=== PATIENT | male | born 1950 | race Caucasian/White ===

== ENCOUNTER → 2018-01-30 19:07 | Outpatient (CLI) | payer MEDICARE, OTHER, SELFPAY ==
[2018-01-30 19:41] LABS: Basophils % 0.4 % (0.1-2.0); Eosinophils # 0.1 K/mm3 (0.0-0.4); Eosinophils % 1.7 % (0.1-12.0); Hematocrit 46.5 % (42.0-52.0); Hemoglobin 14.8 g/dL (14.1-18.0); Lymphocytes % 26.4 % (10-50); Mean Corpuscular HGB Conc 31.9 g/dL (31.8-35.4); Mean Corpuscular Hemoglobin 28.4 pg (27.0-31.2); Mean Corpuscular Volume 89.2 fl (80-94); Mean Platelet Volume 7.4 fl (7.4-10.4); Monocytes # 0.4 K/mm3 (0.1-1.0); Monocytes % 5.9 % (1.7-9.3); Neutrophils # 4.8 K/mm3 (1.8-7.8); Neutrophils % 65.5 % (37.0-80.0); Platelet Count 252 K/mm3 (142-424); Red Blood Count 5.21 M/mm3 (4.60-6.20); Red Cell Distribution Width 14.3 % (11.5-17.5); White Blood Count 7.4 K/mm3 (4.8-10.8)
[2018-01-30 21:36] LABS: Alanine Aminotransferase 20 U/L (12-78); Albumin Level 3.6 gm/dL (3.4-5.0); Alkaline Phosphatase 65 U/L (46-116); Anion Gap 15.2 mEq/L (5-15); Aspartate Amino Transferase 18 U/L (15-37); Bilirubin,Total 0.6 mg/dL (0.2-1.0); Blood Urea Nitrogen 25 mg/dL (7-18); Calcium 8.7 mg/dL (8.5-10.1); Carbon Dioxide 27 mmol/L (21.0-32.0); Chloride 103 mmol/L (98-107); Chol/HDL Ratio 2.3 (1-3.5); Cholesterol 99 mg/dL (140-200); Creatinine,Serum 1.45 mg/dL (0.70-1.30); Estimated Glomerular Filt Rate 48 ml/min (>60); GFR (African American) 59 ML/MIN (>60); Globulin 3.6 gm/dl (1.3-3.2); HDL Cholesterol 44 mg/dL (27-67); LDL Cholesterol 1 mg/dL (0-130); Potassium 5.2 mmoL/L (3.5-5.1); Sodium 140 mmol/L (136-145); T4 (Thyroxine) 8.6 ug/dl (4.7-13.3); Thyroid Stimulating Hormone 1.13 uIU/ml (0.358-3.740); Total Protein,Serum 7.2 gm/dL (6.4-8.2); Triglycerides 270 mg/dL (30-200); VLDL Cholesterol 54 mg/dL (0-40)
[2018-01-30 21:44] LABS: Glucose 89 mg/dL (74-106)
[2018-02-01 11:09] LABS: PSA, Free 0.87 ng/mL; Prostate Specific Ag 2.4 ng/mL (0.0-4.0)
== END ==
PROVIDERS: Visit Provider Emergency Medicine
DX: E03.9 Hypothyroidism, unspecified (principal); I10 Essential (primary) hypertension
CPT/HCPCS: 80053; 80061; 84153; 84154; 84436; 84443; 85025

== ENCOUNTER → 2018-02-09 17:32 | Outpatient (CLI) | payer MEDICARE, OTHER, SELFPAY ==
[2018-02-09 19:00] LABS: Anion Gap 13.7 mEq/L (5-15); Blood Urea Nitrogen 17 mg/dL (7-18); Calcium 9.1 mg/dL (8.5-10.1); Carbon Dioxide 28 mmol/L (21.0-32.0); Chloride 104 mmol/L (98-107); Estimated Glomerular Filt Rate 55 ml/min (>60); GFR (African American) 66 ML/MIN (>60); Glucose 103 mg/dL (74-106); Potassium 4.7 mmoL/L (3.5-5.1); Sodium 141 mmol/L (136-145)
== END ==
PROVIDERS: Visit Provider Physician Assistant
DX: E87.5 Hyperkalemia (principal)
CPT/HCPCS: 80048

== ENCOUNTER 2020-12-26 23:42 | Inpatient (IN) | payer MEDICARE, SELFPAY ==
[2020-12-26 23:40] VITALS: BP 142/70; PULSE 78; RESP 20; TEMP 36.5; O2SAT 99; BMI 18.8
--- NOTE | 2020-12-26 23:48 | ECG_ITS ---
APPROVED REPORT Exam: Resting ECG HR:79 bpm ECG Measurements Heart Rate 79 AXES FL 146 P 85 QRSd 80 QRS 77 QT 362 T 248 QTc 415 Conclusion Normal sinus rhythm T wave abnormality, consider inferior ischemia Abnormal ECG Electronically signed by : Obdulio Yo MD 12/27/2020 08:54:15
[2020-12-27] VITALS (14 sets, daily range): BP systolic 101–130; BP diastolic 54–81; PULSE 60–75; RESP 17–24; TEMP 36.3–36.9; O2SAT 96–100; BMI 15.1
--- NOTE | 2020-12-27 00:18 | CT_ITS ---
PROCEDURE INFORMATION: Exam: CT Abdomen And Pelvis With Contrast Exam date and time: 12/27/2020 12:18 AM Age: 70 years old Clinical indication: Nausea and other: Weight loss possible gi bleed; Additional info: Black stool, poss gi bleed, weight loss TECHNIQUE: Imaging protocol: Computed tomography of the abdomen and pelvis with contrast. Radiation optimization: All CT scans at this facility use at least one of these dose optimization techniques: automated exposure control; mA and/or kV adjustment per patient size (includes targeted exams where dose is matched to clinical indication); or iterative reconstruction. Contrast material: ISOVUE; Contrast volume: 75 ml; Contrast route: IV; COMPARISON: No relevant prior studies available. FINDINGS: Lungs: Severe bullous emphysema at the lung bases. Liver: Subcentimeter low-attenuation lesion in the liver, too small for definitive evaluation, but statistically most likely benign. Gallbladder and bile ducts: Cholelithiasis. No gallbladder wall thickening. No biliary dilation. Pancreas: Pancreatic atrophy with numerous parenchymal calcifications, compatible with chronic pancreatitis. No peripancreatic stranding, fluid collection, or evidence of acute pancreatitis. Spleen: Mildly heterogeneous appearance of the spleen, likely perfusional due to contrast phase/timing. Adrenal glands: Unremarkable. Kidneys and ureters: Bilateral renal cortical thinning/scarring. No hydronephrosis. Renal vascular calcifications, without definite caliceal calculi. Stomach and bowel: Enteric contrast is present within the stomach and most of the small bowel. The stomach and proximal small bowel are not significantly distended. There are several borderline dilated loops of small bowel in the lower abdomen and pelvis measuring up to 2.9 cm in caliber, nonspecific and possibly related to peristalsis, enteritis, or low-grade obstruction without abrupt transition point. The terminal ileum is noted to be decompressed. Enteric contrast has not yet reached the colon. The colon contains a moderate amount of solid stool, and is nondilated. A short segment/knuckle of the sigmoid colon partially enters the left inguinal hernia sac, without obstruction. Scattered colonic diverticula without evidence of acute diverticulitis. Appendix: Not visualized. Intraperitoneal space: Small volume ascites. No pneumoperitoneum. 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 No abdominal aortic aneurysm. Lymph nodes: No enlarged lymph nodes. Urinary bladder: Unremarkable as visualized. No wall thickening. Reproductive: Trace nonspecific scrotal hydroceles. Enlarged prostate gland with coarse central calcifications. Bones/joints: Osteopenia. No acute fracture. [id number] bilateral hip osteoarthrosis. Lumbar degenerative changes, with distal neural foraminal narrowing. Soft tissues: Marked thinning of the subcutaneous adipose tissue. Mild generalized muscle volume loss. Small left inguinal hernia containing a knuckle of the sigmoid colon, without evidence of dilation/obstruction. IMPRESSION: 1. No specific etiology for GI bleeding identified. 2. Several borderline dilated loops of small bowel in the lower abdomen and pelvis, possibly related to peristalsis, enteritis, or low-grade obstruction. Trace pelvic free fluid. 3. Colonic diverticula. 4. Cholelithiasis. 5. Severe emphysema at the lung bases. Other chronic findings as above.
--- NOTE | 2020-12-27 00:20 | HMH.EDWEAK ---
ED Disposition Clinical Impression: CVA, old, aphasia, UGIB (upper gastrointestinal bleed), DIXIE (acute kidney injury) Hyperlipemia Qualifiers: Hyperlipidemia type: unspecified Qualified Code(s): E78.5 - Hyperlipidemia, unspecified HTN (hypertension) Qualifiers: Hypertension type: primary hypertension Qualified Code(s): I10 - Essential (primary) hypertension Cholelithiasis Qualifiers: Cholelithiasis location: gallbladder Cholecystitis presence: without cholecystitis Biliary obstruction: without biliary obstruction Qualified Code(s): K80.20 - Calculus of gallbladder without cholecystitis without obstruction COPD (chronic obstructive pulmonary disease) Qualifiers: COPD type: unspecified COPD Qualified Code(s): J44.9 - Chronic obstructive pulmonary disease, unspecified Anemia Qualifiers: Anemia type: unspecified type Qualified Code(s): D64.9 - Anemia, unspecified Disposition: Admitted as Observation Condition on Discharge: Fair Referrals: Provider,Referral, [Referring] - - Critical Care Critical Care Time: No Attestation: On 12/26/20, the high probability of a clinically significant, sudden or life threatening deterioration of the following system(s) required my full and direct attention, intervention and personal management. The time I documented below is in addition to time spent performing reported procedures but includes the following listed in this critical care notation. Medical Decision Making - Medical Records Medical records reviewed: Yes: I reviewed the patient's medical records. - [place] Inquiry Pt receiving controlled substance: No Vital Signs: 12/26/20 23:40 12/27/20 00:22 12/27/20 00:30 Temperature 97.7 F Temperature Source Oral Pulse Rate 73 73 Pulse Rate [Right] 78 Respiratory Rate 20 Blood Pressure 121/81 112/77 Blood Pressure [Right Arm] 142/70 H Blood Pressure Mean [Right Arm] 94 02 Sat by Pulse Oximetry 99 99 100 Oxygen Delivery Method Room Air 12/27/20 01:00 12/27/20 01:30 12/27/20 02:59 Temperature Temperature Source Pulse Rate 73 73 73 Pulse Rate [Right] Respiratory Rate Blood Pressure 101/67 L 130/76 105/72 L Blood Pressure [Right Arm] Blood Pressure Mean [Right Arm] 02 Sat by Pulse Oximetry 99 96 98 Oxygen Delivery Method 12/27/20 03:30 Temperature Temperature Source Pulse Rate 74 Pulse Rate [Right] Respiratory Rate Blood Pressure 119/75 Blood Pressure [Right Arm] Blood Pressure Mean [Right Arm] 02 Sat by Pulse Oximetry 97 Oxygen Delivery Method Room Air - Lab Data Lab results reviewed: Yes: I reviewed the patient's lab results. Lab Results 12/26/20 23:53: SARS-CoV-2 (PCR) Not detected, Influenza A Untype (PCR) Not detected, Influenza Type B (PCR) Not detected 12/26/20 23:57: WBC 16.7 H, RBC 3.48 L, Hgb 10.3 L, Hct 32.1 L, MCV 92.3, MCH 29.7, MCHC 32.1, RDW 15.1, Plt Count 370, MPV 8.8, Neut % (Auto) 83.3 H, Lymph % (Auto) 13.1, [place] % (Auto) 3.4, Eos % (Auto) 0.0 L, Baso % (Auto) 0.1, Neut # (Auto) 13.9 H, Lymph # (Auto) 2.2, [place] # (Auto) 0.6, Eos # (Auto) 0.0, Baso # (Auto) 0.0, Total Counted 100, Neutrophils % (Manual) 89 H, Lymphocytes % (Manual) 7 L, Monocytes % (Manual) 4, Platelet Estimate Normal, RBC Morphology Not Reportable, Spherocytes 2+ 12/26/20 23:57: Sodium 145, Potassium 4.8, Chloride 112 H, Carbon Dioxide 23, Anion Gap 14.8, BUN 94 H, Creatinine 1.60 H, Estimated Creat Clear 33, Estimated GFR 43 L, Est GFR ( Amer) 52 L, Glucose 146 H, Calcium 9.4, Magnesium 2.1, Total Bilirubin 0.5, AST 28, ALT 20, Alkaline Phosphatase 45, Troponin I 0.04 H, C-Reactive Protein 3.1, Total Protein 6.6, Albumin 3.8, Globulin 2.8, Albumin/Globulin Ratio 1.4, Amylase 79, Lipase 30 12/26/20 23:57: Lactate 2.4 H 12/26/20 23:57: ESR 24 H 12/26/20 23:57: Procalcitonin 0.222 12/27/20 03:00: Stool Occult Blood Positive A 12/27/20 03:40: Troponin I 0.03 12/27/20 03:40: Lactate 1.7 Result diagrams: 12/26/20 23:5
[2020-12-27 00:32] LABS: Basophils % 0.1 % (0.1-2.0); Hematocrit 32.1 % (42.0-52.0); Hemoglobin 10.3 g/dL (14.1-18.0); Lymphocytes # 2.2 K/mm3 (0.7-4.5); Lymphocytes % 13.1 % (10-50); Mean Corpuscular HGB Conc 32.1 g/dL (31.8-35.4); Mean Corpuscular Hemoglobin 29.7 pg (27.0-31.2); Mean Corpuscular Volume 92.3 fl (80-94); Mean Platelet Volume 8.8 fl (7.4-10.4); Monocytes # 0.6 K/mm3 (0.1-1.0); Monocytes % 3.4 % (1.7-9.3); Neutrophils # 13.9 K/mm3 (1.8-7.8); Neutrophils % 83.3 % (37.0-80.0); Platelet Count 370 K/mm3 (142-424); Red Blood Count 3.48 M/mm3 (4.60-6.20); Red Cell Distribution Width 15.1 % (11.5-17.5); White Blood Count 16.7 K/mm3 (4.8-10.8)
[2020-12-27 00:33] LABS: Coronavirus 19, PCR Not Detected (NotDetected); Influenza A, PCR Not Detected (NotDetected); Influenza B, PCR Not Detected (NotDetected)
[2020-12-27 00:35] LABS: MANUAL DIFFERENTIAL MANUAL DIFFERENTIAL (MANUAL DIFF)
[2020-12-27 00:36] LABS: Alanine Aminotransferase 20 U/L (12-78); Albumin Level 3.8 g/dl (3.5-5.0); Albumin/Globulin Ratio 1.4 (1.1-1.8); Alkaline Phosphatase 45 U/L (38-126); Amylase 79 U/L (30-110); Anion Gap 14.8 mEq/L (5-15); Aspartate Amino Transferase 28 U/L (17-59); Bilirubin,Total 0.5 mg/dl (0.2-1.3); Calcium 9.4 mg/dl (8.4-10.2); Carbon Dioxide 23 mmol/L (22.0-30.0); Chloride 112 mmol/L (98-107); Creatinine Clearance Estimated 33 mL/min (50-200); Estimated Glomerular Filt Rate 43 ml/min (>60); GFR (African American) 52 ML/MIN (>60); Globulin 2.8 g/dL (1.3-3.2); Glucose 146 mg/dl (74-100); Lipase 30 U/L (23-300); Magnesium 2.1 mg/dl (1.6-2.3); Potassium 4.8 mmoL/L (3.5-5.1); Sodium 145 mmol/L (136-145); Total Protein,Serum 6.6 g/dl (6.3-8.2)
[2020-12-27 00:38] LABS: Lactic Acid 2.4 mmol/L (0.7-2.1)
[2020-12-27 00:39] LABS: Blood Urea Nitrogen 94 mg/dl (9-20)
[2020-12-27 00:42] LABS: C-Reactive Protein 3.1 mg/L (0-4)
[2020-12-27 00:51] LABS: Lymphocytes % 7 % (10-50); Monocytes % 4 % (2-9); Neutrophils % 89 % (42-76); Platelet Estimate Normal; Spherocytes 2+; Total Cells Counted 100; Troponin I 0.04 ng/ml (0.00-0.034)
[2020-12-27 00:56] LABS: Procalcitonin 0.222 ng/mL (0.0-2.0)
[2020-12-27 00:58] LABS: Erythrocyte Sedimentation Rate 24 mm/hr (0-20)
--- NOTE | 2020-12-27 02:09 | PC.NURSE ---
Radiology notified that pt completed oral contrast @ 0046
--- NOTE | 2020-12-27 02:57 | XR_ITS ---
PROCEDURE INFORMATION: Exam: XR Chest Exam date and time: 12/27/2020 2:57 AM Age: 70 years old Clinical indication: Shortness of breath; Additional info: Shortness of air TECHNIQUE: Imaging protocol: XR of the chest. Views: 1 view. COMPARISON: CR CXR CHEST(2 VIEWS-NOT PORTABLE) 11/11/2015 12:32 PM FINDINGS: Lungs: Severe emphysema. Large bullae at the lung bases, progressive since prior. Chronic architectural distortion. No focal airspace consolidation. No overt pulmonary edema. There is a 6 mm nodular opacity visualized over the anterior right 5th rib, similar to the prior study, and probably a calcified granuloma or artifact related to nipple shadow. Pleural spaces: Chronic flattening of the lung bases. No pleural effusion. No pneumothorax. Heart/Mediastinum: Normal heart size. Aortic atherosclerosis. Bones/joints: Osteopenia. Spondylosis. IMPRESSION: 1. Severe COPD, progressive since 11/11/2015. 2. No acute finding.
[2020-12-27 03:14] LABS: Occult Blood,Stool Positive (Negative)
[2020-12-27 03:46] LABS: Reflex Lactic Add Lactic Reflex
[2020-12-27 03:58] LABS: Lactic Acid Follow Up (RFLX 1) 1.7 mmol/L (0.7-2.1)
[2020-12-27 04:11] LABS: Troponin I 0.03 ng/ml (0.00-0.034)
--- NOTE | 2020-12-27 04:52 | PC.NURSE ---
Journeyman [facility] notified on the need for bed assignment
[2020-12-27 05:30] LABS: Iron 235 ug/dL (49-181)
[2020-12-27 05:39] LABS: Total Iron Binding Capacity 280 ug/dL (261-462)
--- NOTE | 2020-12-27 05:46 | PC.NURSE ---
patient up to floor via wheelchair @ this time.
[2020-12-27 05:48] LABS: T4 (Thyroxine) 9.3 ug/dl (5.53-11.0)
[2020-12-27 06:02] LABS: Thyroid Stimulating Hormone 1.99 uIU/mL (0.465-4.68)
--- NOTE | 2020-12-27 06:08 | PC.NURSE ---
pt unable to accurately state when he last took his medications
[2020-12-27 07:17] LABS: Troponin I 0.02 ng/ml (0.00-0.034)
--- NOTE | 2020-12-27 08:46 | HMH.HP ---
*Admission Date: 12/27/20 *Chief complaint: weakness *History of present illness: pt with progressive weakness and noted dark stool and presented to ed for eval - EMS they were called out for a welfare check to the pt's adress. Pt reports to feeling so weak he has been unable to ambulate for 2 days and has not been able to eat or drink anything since yesterday (12/25). Pt also reports to be having black stool and diarrhea for several days. He lives at home, his family usually helps him out but they are out of town. Pt is A&Ox3. He denies any cough, sob, or n/v. He reports sometimes I feel like I have a fever but I haven't checked it . He also states he has lost maybe 20lbs recently. pt was admitted for eval and treatment [facility] History I have reviewed the patient's past medical history: Yes Medical History: Reports:: Cerebrovascular Accident, Hyperlipidemia, Hypertension Denies:: Cancer, Diabetes Mellitus Type 1, Diabetes Mellitus Type 2, MRSA *Have you ever received a pneumonia vaccine?: No *Have you received a flu vaccine this season?: No Other Surgeries: Yes: Hernia Repair Amputation: No Fractures: No - *Social History Smoking Status: Current every day smoker Tobacco Type: pipe # Packs/Day (cigarettes): 0 Alcohol Intake: never Substance Use Type: denies use *Occupational Status:: retired *Travel in the last 8 weeks: None Family Hx:: Heart Attack, Hypertension Review of Systems - Review of Systems Review of systems:: pertinent systems reviewed and negative unless documented below - Constitutional Reports weakness, Denies fever(s) - Eyes Denies change in vision - ENT Denies sore throat - *Cardiovascular Denies chest pain at rest - *Respiratory Reports shortness of breath, Denies cough, Denies coughing up blood - *Gastrointestinal Reports black, tarry stools, Denies abdominal pain - *Genitourinary Denies blood in urine - *Musculoskeletal Denies joint pain - Integumentary/Breasts Denies rash - *Neurologic Denies headache(s), Denies seizure-like activity - Psychiatric Denies anxiety Meds Home Medications Medication Instructions Recorded Confirmed Type aspirin 81 mg tablet,delayed 81 mg PO DAILY 90 Days #90 tab 01/30/18 12/27/20 History release Clopidogrel Bisulfate [Plavix] 75 mg PO DAILY 12/27/20 12/27/20 History Metoprolol Tartrate [Lopressor 25 mg PO BID 12/27/20 12/27/20 History 25mg tablet] Pravastatin Sodium [Pravachol 40mg 40 mg PO HS 12/27/20 12/27/20 History Tablet] lisinopriL [Lisinopril] 10 mg PO HS 12/27/20 12/27/20 History lisinopriL [Lisinopril] 20 mg PO DAILY 12/27/20 12/27/20 History Allergies Allergy/AdvReac Type Severity Reaction Status Date / Time No Known Allergies Allergy Verified 02/13/19 15:31 Exam Vital signs and Labs for Last 24 Hours: Temp Pulse Resp BP Pulse Ox 97.9 F 67 18 114/64 99 12/27/20 08:00 12/27/20 08:00 12/27/20 08:00 12/27/20 08:00 12/27/20 08:00 Laboratory Results - last 24 hr 12/26/20 23:53: SARS-CoV-2 (PCR) Not detected, Influenza A Untype (PCR) Not detected, Influenza Type B (PCR) Not detected 12/26/20 23:57: WBC 16.7 H, RBC 3.48 L, Hgb 10.3 L, Hct 32.1 L, MCV 92.3, MCH 29.7, MCHC 32.1, RDW 15.1, Plt Count 370, MPV 8.8, Neut % (Auto) 83.3 H, Lymph % (Auto) 13.1, [place] % (Auto) 3.4, Eos % (Auto) 0.0 L, Baso % (Auto) 0.1, Neut # (Auto) 13.9 H, Lymph # (Auto) 2.2, [facility] # (Auto) 0.6, Eos # (Auto) 0.0, Baso # (Auto) 0.0, Total Counted 100, Neutrophils % (Manual) 89 H, Lymphocytes % (Manual) 7 L, Monocytes % (Manual) 4, Platelet Estimate Normal, RBC Morphology Not Reportable, Spherocytes 2+ 12/26/20 23:57: Sodium 145, Potassium 4.8, Chloride 112 H, Carbon Dioxide 23, Anion Gap 14.8, BUN 94 H, Creatinine 1.60 H, Estimated Creat Clear 33, Estimated GFR 43 L, Est GFR ( Amer) 52 L, Glucose 146 H, Calcium 9.4, Magnesium 2.1, Total Bilirubin 0.5, AST 28, ALT 20, Alkaline Phosphatase 45, Troponin I 0.04 H, C-Reactive Pr
--- NOTE | 2020-12-27 09:29 | HMH.GSCON ---
*Admission Date: 12/27/20 *Reason for consult:: Upper GI bleed, possible EGD *History of present illness: Patient is a 70-year-old male with BMI of 15 from [facility] with history of previous stroke on aspirin and Plavix. Patient was brought into the emergency department yesterday evening reportedly after EMS were called to do a welfare check to the patient's address. Patient was found to be extremely weak and unable to ambulate for 2 days with limited nutritional and hydration intake. He described black stool and diarrhea for several days. He has had a weight loss. He was found to have hemoglobin 10.3 with hematocrit of 32.1. He Hemoccult positive stool. He has a BUN of 94 with a creatinine of 1.6. He underwent CT scan of the abdomen and pelvis with IV contrast which revealed no specific etiology to explain GI bleeding with several borderline dilated loops of small bowel, colonic diverticuli, cholelithiasis, severe emphysema. He was admitted for inpatient management and surgical consultation. Review of Systems - Review of Systems Review of systems:: unable to obtain - *Neurologic Denies headache(s), Denies seizure-like activity [facility] History I have reviewed the patient's past medical history: Yes Medical History: Reports:: Cerebrovascular Accident, Hyperlipidemia, Hypertension Denies:: Cancer, Diabetes Mellitus Type 1, Diabetes Mellitus Type 2, MRSA *Have you ever received a pneumonia vaccine?: No *Have you received a flu vaccine this season?: No Other Surgeries: Yes: Hernia Repair Amputation: No Fractures: No - *Social History Smoking Status: Current every day smoker Tobacco Type: pipe # Packs/Day (cigarettes): 0 Alcohol Intake: never Substance Use Type: denies use *Occupational Status:: retired *Travel in the last 8 weeks: None Family Hx:: Heart Attack, Hypertension Meds Home Medications Medication Instructions Recorded Confirmed Type aspirin 81 mg tablet,delayed 81 mg PO DAILY 90 Days #90 tab 01/30/18 12/27/20 History release Clopidogrel Bisulfate [Plavix] See Rx Instructions .ROUTE .COMPLEX 12/27/20 12/27/20 History Metoprolol Tartrate [Lopressor 25 mg PO BID 12/27/20 12/27/20 History 25mg tablet] Pravastatin Sodium [Pravachol 40mg 40 mg PO DAILY 12/27/20 12/27/20 History Tablet] lisinopriL [Lisinopril] 20 mg PO DAILY 12/27/20 12/27/20 History lisinopriL [Lisinopril] See Rx Instructions .ROUTE .COMPLEX 12/27/20 12/27/20 History Allergies Allergy/AdvReac Type Severity Reaction Status Date / Time No Known Allergies Allergy Verified 02/13/19 15:31 Exam Vital signs and Labs for Last 24 Hours: Temp Pulse Resp BP Pulse Ox 97.9 F 67 18 114/64 99 12/27/20 08:00 12/27/20 08:00 12/27/20 08:00 12/27/20 08:00 12/27/20 08:00 Laboratory Results - last 24 hr 12/26/20 23:53: SARS-CoV-2 (PCR) Not detected, Influenza A Untype (PCR) Not detected, Influenza Type B (PCR) Not detected 12/26/20 23:57: WBC 16.7 H, RBC 3.48 L, Hgb 10.3 L, Hct 32.1 L, MCV 92.3, MCH 29.7, MCHC 32.1, RDW 15.1, Plt Count 370, MPV 8.8, Neut % (Auto) 83.3 H, Lymph % (Auto) 13.1, [place] % (Auto) 3.4, Eos % (Auto) 0.0 L, Baso % (Auto) 0.1, Neut # (Auto) 13.9 H, Lymph # (Auto) 2.2, [place] # (Auto) 0.6, Eos # (Auto) 0.0, Baso # (Auto) 0.0, Total Counted 100, Neutrophils % (Manual) 89 H, Lymphocytes % (Manual) 7 L, Monocytes % (Manual) 4, Platelet Estimate Normal, RBC Morphology Not Reportable, Spherocytes 2+ 12/26/20 23:57: Sodium 145, Potassium 4.8, Chloride 112 H, Carbon Dioxide 23, Anion Gap 14.8, BUN 94 H, Creatinine 1.60 H, Estimated Creat Clear 33, Estimated GFR 43 L, Est GFR ( Amer) 52 L, Glucose 146 H, Calcium 9.4, Magnesium 2.1, Total Bilirubin 0.5, AST 28, ALT 20, Alkaline Phosphatase 45, Troponin I 0.04 H, C-Reactive Protein 3.1, Total Protein 6.6, Albumin 3.8, Globulin 2.8, Albumin/Globulin Ratio 1.4, Amylase 79, Lipase 30 12/26/20 23:57: Lactate 2.4 H 12/26/20 23:57: ESR 24 H 12/26/20 23:57: Procalcitonin 0.222 10
--- NOTE | 2020-12-27 11:29 | ECG_ITS ---
APPROVED REPORT Exam: Resting ECG HR:69 bpm ECG Measurements Heart Rate 69 AXES MD 158 P 84 QRSd 80 QRS 76 QT 420 T 159 QTc 450 Conclusion Normal sinus rhythm Nonspecific T wave abnormality Abnormal ECG Electronically signed by : Obdulio Yo MD 12/29/2020 18:00:16
--- NOTE | 2020-12-27 11:47 | P.CONPHA_ITS ---
[facility] Pharmacy VTE Monitoring - Patient Demographics Admission date: 12/27/20 Report Date: 12/27/20 Time: 11:47 Allergies/Adverse Reactions: Patient Allergies No Known Allergies Allergy (Verified 02/13/19 15:31) Height: 1.7 m Weight: 43.715 kg Patient Problems: Current Active Problems Cholelithiasis (Acute) UGIB (upper gastrointestinal bleed) (Acute) DIXIE (acute kidney injury) (Acute) COPD (chronic obstructive pulmonary disease) (Acute) Anemia (Acute) CVA, old, aphasia (Acute) HTN (hypertension) (Acute) Hyperlipemia (Acute) - VTE Risk Labs: VTE Related Lab Results Hgb 10.3 g/dL (14.1-18.0) L 12/26/20 23:57 Hct 32.1 % (42.0-52.0) L 12/26/20 23:57 Plt Count 370 K/mm3 (142-424) 12/26/20 23:57 BUN 94 mg/dl (9-20) H 12/26/20 23:57 Creatinine 1.60 mg/dl (0.66-1.25) H 12/26/20 23:57 Estimated Creat Clear 33 mL/min (50-200) 12/26/20 23:57 VTE Score: 6 VTE Risk Level: Moderate Risk - Prophylaxis Types of VTE Prophylaxis: TEDS Knee High Location of Applied Device: Bilateral Lower Extremeties (GLO HOSE ORDER PLACED)
--- NOTE | 2020-12-27 16:58 | PC.NURSE ---
Pt has been pleasant and cooperative this shift. A&O X4. No complaints of pain. Pt is currently on room air with sats. >90%. Lung sounds reveal expiratory wheezing. No edema noted. Telemetry reveals NSR. Skin is C/D/I. Pt turns/repositions independently. Pt uses the urinal to void clear, yellow urine without issue. 1 large, loose, red-tinged stool today via bedpan. Pt has not been OOB this shift, but has intermittently sat up on the side of the bed. Pt is tolerating a clear liquid diet and consumes the majority of every meal. 20 G peripheral IV in the RT forearm is patent and infusing NS @ 75 ML/HR. VSS. Call light within reach. Will continue to monitor.
[2020-12-27 17:35] LABS: Microscopic, Urine URINE MICROSCOPIC (MICROSCOPIC)
[2020-12-27 17:36] LABS: Appearance,Urine CLEAR (Clear); Bilirubin,Urine Negative (Negative); Blood, Urine Negative (Negative); Color,Urine YELLOW (Yellow); Glucose,Urine (UA) Negative (Negative); Ketones,Urine Negative (Negative); Leukocyte Esterase,Urine Negative (Negative); Nitrate,Urine Negative (Negative); Protein,Urine Negative (Negative); Urobilinogen,Urine 0.2 EU/dl (0.2)
[2020-12-27 17:43] LABS: Bacteria,Urine 1+ /lpf; Squamous Epithelial Cell,Urine Occasional #/hpf (0-5); WBC,Urine Occasional #/hpf (0-3)
[2020-12-28] VITALS (36 sets, daily range): BP systolic 95–126; BP diastolic 53–78; PULSE 58–77; RESP 14–22; TEMP 36.3–36.9; O2SAT 93–100; BMI 15.5
--- NOTE | 2020-12-28 06:04 | PC.NURSE ---
Patient is A&Ox4. He has tolerated clear liquids this shift. Patient lung sounds are diminished throughout. He has voiced no complaints to this RN. VSS, call light within reach, will continue to monitor.
[2020-12-28 08:19] LABS: Basophils % 0.3 % (0.1-2.0); Eosinophils # 0.1 K/mm3 (0.0-0.4); Eosinophils % 0.8 % (0.1-12.0); Hematocrit 24.4 % (42.0-52.0); Hemoglobin 7.6 g/dL (14.1-18.0); Lymphocytes # 2.3 K/mm3 (0.7-4.5); Lymphocytes % 26.4 % (10-50); Mean Corpuscular HGB Conc 31.2 g/dL (31.8-35.4); Mean Corpuscular Hemoglobin 29.7 pg (27.0-31.2); Mean Corpuscular Volume 95.3 fl (80-94); Mean Platelet Volume 8.4 fl (7.4-10.4); Monocytes # 0.4 K/mm3 (0.1-1.0); Monocytes % 4.7 % (1.7-9.3); Neutrophils # 5.8 K/mm3 (1.8-7.8); Neutrophils % 67.8 % (37.0-80.0); Platelet Count 246 K/mm3 (142-424); Red Blood Count 2.56 M/mm3 (4.60-6.20); Red Cell Distribution Width 15.4 % (11.5-17.5); White Blood Count 8.5 K/mm3 (4.8-10.8)
[2020-12-28 08:24] LABS: Chloride 117 mmol/L (98-107); Potassium 3.5 mmoL/L (3.5-5.1); Sodium 145 mmol/L (136-145)
[2020-12-28 08:27] LABS: Anion Gap 9.5 mEq/L (5-15); Blood Urea Nitrogen 45 mg/dl (9-20); Calcium 8.1 mg/dl (8.4-10.2); Carbon Dioxide 22 mmol/L (22.0-30.0); Creatinine Clearance Estimated 40 mL/min (50-200); Estimated Glomerular Filt Rate 66 ml/min (>60); GFR (African American) 80 ML/MIN (>60); Glucose 105 mg/dl (74-100)
--- NOTE | 2020-12-28 09:45 | HMH.ACPN2 ---
Internal Medicine - PN: Subj *Date: 12/29/20 *Time: 05:05 Interval history: pt w/o specific c/o but has dec h/h this am Exam Vital signs and Labs for Last 24 Hours: Temp Pulse Resp BP Pulse Ox 97.9 F 65 22 95/57 L 98 12/28/20 08:00 12/28/20 08:00 12/28/20 08:00 12/28/20 08:00 12/28/20 08:00 Laboratory Results - last 24 hr 12/27/20 17:30: Urine Color Yellow, Urine Appearance Clear, Urine pH 5.0, Ur Specific [place] 1.020, Urine Protein Negative, Urine Glucose (UA) Negative, Urine Ketones Negative, Urine Blood Negative, Urine Nitrate Negative, Urine Bilirubin Negative, Urine Urobilinogen 0.2, Ur Leukocyte Esterase Negative, Urine WBC Occasional, Ur Squamous Epith Cells Occasional, Urine Bacteria 1+ 12/28/20 07:38: WBC 8.5 D, RBC 2.56 L D, Hgb 7.6 L, Hct 24.4 L, MCV 95.3 H, MCH 29.7, MCHC 31.2 L, RDW 15.4, Plt Count 246 D, MPV 8.4, Neut % (Auto) 67.8, Lymph % (Auto) 26.4, [place] % (Auto) 4.7, Eos % (Auto) 0.8, Baso % (Auto) 0.3, Neut # (Auto) 5.8, Lymph # (Auto) 2.3, [place] # (Auto) 0.4, Eos # (Auto) 0.1, Baso # (Auto) 0.0 12/28/20 07:38: Sodium 145, Potassium 3.5 D, Chloride 117 H, Carbon Dioxide 22, Anion Gap 9.5, BUN 45 H D, Creatinine 1.10 D, Estimated Creat Clear 40, Estimated GFR 66, Est GFR ( Amer) 80 D, Glucose 105 H, Calcium 8.1 L I & O for Last 24 hours: Intake & Output 12/25/20 12/26/20 12/27/20 12/28/20 11:59 11:59 11:59 11:59 Intake Total 1000 / 1000 4148 / 4148 Output Total 825 / 825 Balance 1000 / 999 3323 / 3323 Weight 96 lb 6 oz 99 lb 7 oz - Constitutional no acute distress, cachectic - *Routine HEENT Exam Head: Present: normocephalic Eye: Present: EOMI, PERRL ENT: Present: mucous membranes dry - *Routine Neck Exam Absent: JVD - *Routine Respiratory Exam Present: decreased breath sounds - *Routine Cardiovascular Exam Present: RRR - *Routine Abdominal Exam Present: soft. Absent: tenderness - *Routine Extremities Exam Absent: calf tenderness - *Routine Skin Exam Present: intact Comments: sacral intact - *Routine Neurological Exam Present: alert, CN II-XII intact - Routine Psychiatric Exam Present: normal affect Assessment and Plan (1) Low body mass index (BMI) Status: Acute Category: Medical (2) DIXIE (acute kidney injury) Status: Acute Category: Medical Code(s): N17.9 - Acute kidney failure, unspecified (3) Anemia Status: Acute Qualifiers: Anemia type: unspecified type Qualified Code(s): D64.9 - Anemia, unspecified Category: Medical Code(s): D64.9 - Anemia, unspecified (4) COPD (chronic obstructive pulmonary disease) Status: Acute Qualifiers: COPD type: unspecified COPD Qualified Code(s): J44.9 - Chronic obstructive pulmonary disease, unspecified Category: Medical Code(s): J44.9 - Chronic obstructive pulmonary disease, unspecified (5) CVA, old, aphasia Status: Acute Category: Medical Code(s): I69.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 (6) Cholelithiasis Status: Acute Qualifiers: Cholelithiasis location: gallbladder Cholecystitis presence: without cholecystitis Biliary obstruction: without biliary obstruction Qualified Code(s): K80.20 - Calculus of gallbladder without cholecystitis without obstruction Category: Medical Code(s): K80.20 - Calculus of gallbladder without cholecystitis without obstruction (7) HTN (hypertension) Status: Acute Qualifiers: Hypertension type: primary hypertension Qualified Code(s): I10 - Essential (primary) hypertension Category: Medical Code(s): I10 - Essential (primary) hypertension (8) Hyperlipemia Status: Acute Qualifiers: Hyperlipidemia type: unspecified Qualified Code(s): E78.5 - Hyperlipidemia, unspecified Category: Medical Code(s): E78.5 - Hyperlipidemia, unspecified (9) UGIB (upper gastrointestinal bleed) Status: Acute Category: Medical Code(s): K92.2 - Gastrointestinal hemorr
--- NOTE | 2020-12-28 09:49 | HMH.GSPN ---
Subjective Patient reports: no new complaints Progress Note: A&P (1) Low body mass index (BMI) Status: Acute (2) DIXIE (acute kidney injury) Status: Acute (3) Anemia Status: Acute (4) COPD (chronic obstructive pulmonary disease) Status: Acute (5) CVA, old, aphasia Status: Acute (6) Cholelithiasis Status: Acute (7) HTN (hypertension) Status: Acute (8) Hyperlipemia Status: Acute (9) UGIB (upper gastrointestinal bleed) Status: Acute (10) Acute blood loss anemia Status: Acute Assessment and Plan for All Diagnoses:: hgB decreased today. Plan EGD in the morning. Exam Vital signs and Labs for Last 24 Hours: Temp Pulse Resp BP Pulse Ox 97.9 F 65 22 95/57 L 98 12/28/20 08:00 12/28/20 08:00 12/28/20 08:00 12/28/20 08:00 12/28/20 08:00 Laboratory Results - last 24 hr 12/27/20 17:30: Urine Color Yellow, Urine Appearance Clear, Urine pH 5.0, Ur Specific [place] 1.020, Urine Protein Negative, Urine Glucose (UA) Negative, Urine Ketones Negative, Urine Blood Negative, Urine Nitrate Negative, Urine Bilirubin Negative, Urine Urobilinogen 0.2, Ur Leukocyte Esterase Negative, Urine WBC Occasional, Ur Squamous Epith Cells Occasional, Urine Bacteria 1+ 12/28/20 07:38: WBC 8.5 D, RBC 2.56 L D, Hgb 7.6 L, Hct 24.4 L, MCV 95.3 H, MCH 29.7, MCHC 31.2 L, RDW 15.4, Plt Count 246 D, MPV 8.4, Neut % (Auto) 67.8, Lymph % (Auto) 26.4, [place] % (Auto) 4.7, Eos % (Auto) 0.8, Baso % (Auto) 0.3, Neut # (Auto) 5.8, Lymph # (Auto) 2.3, [place] # (Auto) 0.4, Eos # (Auto) 0.1, Baso # (Auto) 0.0 12/28/20 07:38: Sodium 145, Potassium 3.5 D, Chloride 117 H, Carbon Dioxide 22, Anion Gap 9.5, BUN 45 H D, Creatinine 1.10 D, Estimated Creat Clear 40, Estimated GFR 66, Est GFR ( Amer) 80 D, Glucose 105 H, Calcium 8.1 L I & O for Last 24 hours: Intake & Output 12/25/20 12/26/20 12/27/20 12/28/20 11:59 11:59 11:59 11:59 Intake Total 1000 / 1000 4148 / 4148 Output Total 825 / 825 Balance 1000 / 1000 3323 / 3323 Weight 96 lb 6 oz 99 lb 7 oz - Constitutional no acute distress
--- NOTE | 2020-12-28 09:56 | CT_ITS ---
PROCEDURE INFORMATION: Exam: CT Chest Without Contrast; Diagnostic Exam date and time: 12/28/20 09:56 AM Age: 70 years old Clinical indication: Patient HX: Shortness of breath, patient was admitted with ugi bleed. Patient is a pipe smoker. ; Additional info: SOB TECHNIQUE: Imaging protocol: Diagnostic computed tomography of the chest without contrast. Radiation optimization: All CT scans at this facility use at least one of these dose optimization techniques: automated exposure control; mA and/or kV adjustment per patient size (includes targeted exams where dose is matched to clinical indication); or iterative reconstruction. COMPARISON: CR XR CHEST PORTABLE 12/27/20 03:28 AM FINDINGS: Lungs: Severe bullous emphysematous changes with basilar predominance. Pleural spaces: Unremarkable. No pneumothorax. No pleural effusion. Heart: Unremarkable. No cardiomegaly. No pericardial effusion. Aorta: Unremarkable. No aortic aneurysm. Lymph nodes: Unremarkable. No enlarged lymph nodes. Gallbladder and bile ducts: Cholelithiasis. Pancreas: Severe chronic pancreatitis change in the tail of the pancreas. Bones/joints: Ankylosis of the T-spine. Soft tissues: Unremarkable. IMPRESSION: 1. Severe bullous emphysematous changes with basilar predominance. 2. Ankylosis of the T-spine. 3. Severe chronic pancreatitis change in the tail of the pancreas. 4. Cholelithiasis.
--- NOTE | 2020-12-28 17:27 | PC.NURSE ---
Pt has been pleasant and cooperative this shift. A&O X4. No complaints of pain. Pt is currently on room air with sats. >90%. Lung sounds reveal expiratory rhonchi. No edema noted. Telemetry reveals NSR. Skin is C/D/I. Pt turns/repositions independently. Pt uses the urinal to void clear, yellow urine without issue. No BM thus far this shift. Pt ambulates with assistance X1 and sat up in the recliner for several hours today. Pt is tolerating a clear liquid diet and consumes the majority of every meal. 20 G peripheral IV in the RT upper arm is patent and infusing NS @ 75 ML/HR. VSS. Call light within reach. Will continue to monitor.
[2020-12-29] VITALS (22 sets, daily range): BP systolic 105–164; BP diastolic 65–89; PULSE 66–90; RESP 16–20; TEMP 36.3–36.9; O2SAT 93–100; BMI 15.4; BMI 15.2
[2020-12-29 00:45] LABS: Hematocrit 34.2 % (42.0-52.0)
[2020-12-29 00:46] LABS: Hemoglobin 11.5 g/dL (14.1-18.0)
--- NOTE | 2020-12-29 03:32 | PC.NURSE ---
Patient is A&O x4. He remains on room air. Patient received all 3 units of PRBC. Patient tolerated it well. Patient states the diarrhea has slowed down a lot . Patient has expiratory rhonchi noted when auscultating lungs. Patient had a small BM that was black tarry in color. Patient voids using the urinal. He has been NSR on telemetry. He has voiced no complaints to this RN. VSS, call light within reach, will continue to monitor.
--- NOTE | 2020-12-29 06:48 | PC.NURSE ---
patient off floor for EGD @ this time.
[2020-12-29 07:04] LABS: Basophils % 0.2 % (0.1-2.0); Eosinophils # 0.1 K/mm3 (0.0-0.4); Eosinophils % 0.6 % (0.1-12.0); Hemoglobin 11.6 g/dL (14.1-18.0); Lymphocytes # 1.3 K/mm3 (0.7-4.5); Lymphocytes % 10.3 % (10-50); Mean Corpuscular HGB Conc 31.4 g/dL (31.8-35.4); Mean Corpuscular Hemoglobin 29.7 pg (27.0-31.2); Mean Corpuscular Volume 94.3 fl (80-94); Mean Platelet Volume 7.5 fl (7.4-10.4); Monocytes # 0.6 K/mm3 (0.1-1.0); Monocytes % 4.7 % (1.7-9.3); Neutrophils # 10.8 K/mm3 (1.8-7.8); Neutrophils % 84.1 % (37.0-80.0); Platelet Count 206 K/mm3 (142-424); Red Blood Count 3.93 M/mm3 (4.60-6.20); Red Cell Distribution Width 15.5 % (11.5-17.5); White Blood Count 12.8 K/mm3 (4.8-10.8)
[2020-12-29 07:10] LABS: Chloride 117 mmol/L (98-107); Sodium 144 mmol/L (136-145)
[2020-12-29 07:11] LABS: Potassium 3.7 mmoL/L (3.5-5.1)
[2020-12-29 07:13] LABS: Blood Urea Nitrogen 27 mg/dl (9-20); Creatinine Clearance Estimated 43 mL/min (50-200); Estimated Glomerular Filt Rate 83 ml/min (>60)
[2020-12-29 07:14] LABS: Anion Gap 7.7 mEq/L (5-15); Calcium 7.9 mg/dl (8.4-10.2); Carbon Dioxide 23 mmol/L (22.0-30.0); GFR (African American) 101 ML/MIN (>60); Glucose 95 mg/dl (74-100)
--- NOTE | 2020-12-29 07:38 | HMH.SCOPE ---
- Procedure: Date: 12/29/20 Patient Date of :: 1950 Procedure Performed:: Esophago-gastroduodenoscopy with biopsy Indications:: Patient is a 70-year-old male with BMI of 15 from [facility] with history of previous stroke on aspirin and Plavix. Patient was brought into the emergency department yesterday evening reportedly after EMS were called to do a welfare check to the patient's address. Patient was found to be extremely weak and unable to ambulate for 2 days with limited nutritional and hydration intake. He described black stool and diarrhea for several days. He has had a weight loss. He was found to have hemoglobin 10.3 with hematocrit of 32.1. He Hemoccult positive stool. He has a BUN of 94 with a creatinine of 1.6. He underwent CT scan of the abdomen and pelvis with IV contrast which revealed no specific etiology to explain GI bleeding with several borderline dilated loops of small bowel, colonic diverticuli, cholelithiasis, severe emphysema. He was admitted for inpatient management and surgical consultation. He did show some decrease in hemoglobin. He was transfused 3 units with excellent response. Performing Provider:: Osman Rosales MD Referring Provider:: Chato Diez MD Sedation:: MAC sedation Procedure:: Patient was taken to endoscopy procedure room. He was positioned in lateral decubitus position. Adequate intravenous sedation was achieved with anesthesia titration of propofol. Olympus endoscope was inserted via the oropharynx. Esophagus appeared normal. Gastroesophageal junction was encountered at approximately 42 cm from the incisors. Stomach was cannulated and insufflated. Retroflexion revealed suboptimal visualization of the gastroesophageal junction and hiatal hernia was unable to be assessed. Overall gastric lumen appeared relatively unremarkable with only minimal nonerosive gastritis. Pylorus was traversed. Endoscope was advanced to the distal duodenum. There was a duodenal diverticulum. Within the first and second portion of the duodenum there were several small punctate ulcerations. There was no active bleeding and no stigmata of recent bleeding. Endoscope was withdrawn. Findings:: Mild nonerosive gastritis Duodenal diverticulum Several small punctate duodenal ulcerations without stigmata of recent bleeding Recommendations:: I will go ahead and start a regular diet. Continue proton pump inhibitors. Once hemoglobin shows stability after transfusion may be able to discharge home. May ultimately need colonoscopy as outpatient for completeness. Complications:: None immediately apparent Estimated blood obtained (mL): 1
--- NOTE | 2020-12-29 08:00 | CA_ITS ---
APPROVED REPORT EXAM: Comprehensive 2D, Doppler, and color-flow Echocardiogram Multi Purpose Machine Operator: Radha Yanes RT(R) Ht: 5 ft 6 in Wt: 99lbs BSA: 1.48 BP: 114/64 mmHg Indications: murmur, HTN, smoker, hyperllipidemia, CVA, anemia, GI bleed 2D Dimensions LVOT 2.02 cm (M/F) 1.5-2.5 M-Mode Dimensions RVDd 1.68 cm (0.9-2.6) LA Diam 3.87 cm (1.9-4.0) LVDd 3.80 cm (3.5-5.7) Ao Diam 3.19 cm (2.0-3.7) LVDs 2.79 cm (3.5-5.7) IVSd 1.00 cm (0.6-1.1) PWd 0.79 cm (0.6-1.1) EF (Teich) 52.70% FS 26.60% EDV (Teich) 62.00 mL ESV (Teich) 29.30 mL LV Diastology E Decel Time 223.00 (160-240 msec) E/A Ratio 1.3 MED E' 6.30 (< 7 cm/sec) E'/MED E' Ratio 10.35 (>14) LAT E' 10.00 (<10 cm/sec) E/LAT E' Ratio 6.52 (>14) Mitral Valve MV E Max Rolando. 65.00 (40-130 cm/s) MV A Velocity 50.00 (40-130 cm/s) E/A Ratio 1.29 MV Decel. Time 223.00 (160-240 ms) MV PHT 65.00 ms Tricuspid Valve TR P. Velocity 367.00 cm/s RAP Estimate 15.00 mmHg RVSP 68.80 mmHg Left Ventricle Left atrium is mildly enlarged, left ventricle is normal size, mild concentric left ventricular hypertrophy, visually estimated ejection fraction 55% with no regional wall motion abnormality, diastolic parameters are inconclusive in the study. Right Ventricle Right atrium and right ventricle is qualitatively mildly enlarged with normal contractility. Aortic Valve Aortic valve is thickened and calcified without Doppler evidence of aortic stenosis or aortic insufficiency. Mitral Valve Mitral valve leaflets are minimally thickened, there is mild mitral regurgitation. Tricuspid Valve Tricuspid valve grossly normal, there is mild tricuspid regurgitation, calculated right ventricular systolic pressure is 60 mmHg. Pulmonic Valve Pulmonic valve is poorly visualized. Great Vessels Aortic root is normal size. Inferior vena cava is mildly dilated with normal inspiratory collapse. Pericardium Small pericardial effusion noted. Conclusion 1. Mild biatrial enlargement, normal left ventricular size, mild concentric left ventricular hypertrophy, visually estimated ejection fraction 55% with no regional wall motion abnormality, diastolic parameters are inconclusive. 2. Mildly enlarged right ventricle with normal contractility. 3. Thickened and calcified aortic valve without Doppler evidence of aortic stenosis or aortic insufficiency. 4. Mild mitral and tricuspid regurgitation, calculated right ventricular systolic pressure 60 mmHg. 5. Inferior vena cava is mildly dilated with normal inspiratory collapse. 6. Small pericardial effusion noted. Electronically signed by : Dustin Zhou MD 12/29/2020 21:46:46
--- NOTE | 2020-12-29 08:20 | P.PN_ITS ---
[facility] Anesthesia Checklist - Patient Identification Patient Identification: Arm Band, Verbal (Name & ) - Structural Data Admitted From: Inpatient Planned Operative Procedure/s: EGD Consent for Planned Operative Procedure(s) Verified: Yes Verified Documents: Surgical Consent - NPO Status Verified Time NPO: 00:00 - Chart Verification Results Verified: CBC - Cardiovascular Assessment Heart Sounds: S1 & S2 - Airway Assessment C-Spine Mobility Assessed: Yes TMJ Mobility Assessed: Yes Dentition: Poor Dentition - Neurological Assessment Level of Consciousness: Awake, Alert, Appropriate - Anesthesia Plan ASA Class: III Anesthesia Type: General [facility] History I have reviewed the patient's past medical history: Yes Medical History: Reports:: Cerebrovascular Accident, Hyperlipidemia, Hypertension Denies:: Cancer, Diabetes Mellitus Type 1, Diabetes Mellitus Type 2, MRSA *Have you ever received a pneumonia vaccine?: No *Have you received a flu vaccine this season?: No Anesthesia experience/problems:: no issues Other Surgeries: Yes: Hernia Repair Amputation: No Fractures: No - *Social History Smoking Status: Current every day smoker Tobacco Type: pipe # Packs/Day (cigarettes): 0 Alcohol Intake: never Substance Use Type: denies use *Occupational Status:: retired *Travel in the last 8 weeks: None Family Hx:: Heart Attack, Hypertension
--- NOTE | 2020-12-29 10:00 | HMH.ACPN2 ---
Internal Medicine - PN: Subj *Date: 12/29/20 *Time: 08:20 Interval history: pt just back from egd eating breakfast Exam Vital signs and Labs for Last 24 Hours: Temp Pulse Resp BP Pulse Ox 98.0 F 72 20 121/68 100 12/29/20 08:00 12/29/20 08:00 12/29/20 08:00 12/29/20 08:00 12/29/20 08:00 Laboratory Results - last 24 hr 12/28/20 07:38: Blood Type Confirm A Positive 12/28/20 10:00: Blood Type A Positive, Antibody Screen Negative, Crossmatch (AHG) See Detail 12/29/20 00:35: Hgb 11.5 L D, Hct 34.2 L 12/29/20 06:17: WBC 12.8 H D, RBC 3.93 L D, Hgb 11.6 L, Hct 37.0 L, MCV 94.3 H, MCH 29.7, MCHC 31.4 L, RDW 15.5, Plt Count 206, MPV 7.5, Neut % (Auto) 84.1 H, Lymph % (Auto) 10.3, [place] % (Auto) 4.7, Eos % (Auto) 0.6, Baso % (Auto) 0.2, Neut # (Auto) 10.8 H, Lymph # (Auto) 1.3, [place] # (Auto) 0.6, Eos # (Auto) 0.1, Baso # (Auto) 0.0 12/29/20 06:17: Sodium 144, Potassium 3.7, Chloride 117 H, Carbon Dioxide 23, Anion Gap 7.7, BUN 27 H D, Creatinine 0.90, Estimated Creat Clear 43, Estimated GFR 83, Est GFR ( Amer) 101 D, Glucose 95, Calcium 7.9 L I & O for Last 24 hours: Intake & Output 12/26/20 12/27/20 12/28/20 12/29/20 11:59 11:59 11:59 11:59 Intake Total 1000 / 1000 4148 / 4148 2110 / 2110 Output Total 825 / 825 300 / 300 Balance 1000 / 1000 3323 / 3323 1810 / 1810 Weight 96 lb 6 oz 99 lb 7 oz 98 lb 7 oz Microbiology Reports for the Last 24 Hours: Microbiology 12/26/20 23:57 Blood Blood Culture - Preliminary NO GROWTH AFTER 48 HOURS 12/26/20 23:57 Blood Blood Culture - Preliminary NO GROWTH AFTER 48 HOURS - Constitutional thin, chronically ill appearing - *Routine HEENT Exam Head: Present: normocephalic Eye: Present: PERRL ENT: Present: mucous membranes moist - *Routine Neck Exam Present: supple. Absent: lymphadenopathy - *Routine Respiratory Exam Present: CTA bilaterally - *Routine Cardiovascular Exam Present: RRR - *Routine Abdominal Exam Present: soft, normoactive bowel sounds. Absent: tenderness - *Routine Extremities Exam Absent: cyanosis, clubbing, edema - *Routine Skin Exam Present: warm. Absent: rash - *Routine Neurological Exam Present: alert, oriented X3 Assessment and Plan (1) Low body mass index (BMI) Status: Acute Category: Medical (2) DIXIE (acute kidney injury) Status: Acute Category: Medical Code(s): N17.9 - Acute kidney failure, unspecified (3) Anemia Status: Acute Qualifiers: Anemia type: unspecified type Qualified Code(s): D64.9 - Anemia, unspecified Category: Medical Code(s): D64.9 - Anemia, unspecified (4) COPD (chronic obstructive pulmonary disease) Status: Acute Qualifiers: COPD type: unspecified COPD Qualified Code(s): J44.9 - Chronic obstructive pulmonary disease, unspecified Category: Medical Code(s): J44.9 - Chronic obstructive pulmonary disease, unspecified (5) CVA, old, aphasia Status: Acute Category: Medical Code(s): I69.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 (6) Cholelithiasis Status: Acute Qualifiers: Cholelithiasis location: gallbladder Cholecystitis presence: without cholecystitis Biliary obstruction: without biliary obstruction Qualified Code(s): K80.20 - Calculus of gallbladder without cholecystitis without obstruction Category: Medical Code(s): K80.20 - Calculus of gallbladder without cholecystitis without obstruction (7) HTN (hypertension) Status: Acute Qualifiers: Hypertension type: primary hypertension Qualified Code(s): I10 - Essential (primary) hypertension Category: Medical Code(s): I10 - Essential (primary) hypertension (8) Hyperlipemia Status: Acute Qualifiers: Hyperlipidemia type: unspecified Qualified Code(s): E78.5 - Hyperlipidemia, unspecified Category: Medical Code(s): E78.5 - Hyperlipidemia, unspecified (9) UGIB (upper gastr
--- NOTE | 2020-12-29 11:35 | HMH.PTEV ---
Physical Therapy Evaluation Rehab PT IP Evaluation Start: 12/29/20 09:57 Freq: ONCE Status: Active Protocol: Document 12/29/20 11:17 ELIANA (Rec: 12/29/20 11:35 ELIANA [id number]) Subjective/History History History This is the initial evaluation for John Tidwell. Pt is a 70 y/o male diagnosed with progressive weakness and noted dark stool. Pt has suffered from an old CVA causing Right sided weakness and aphasia. Pt did show low Hbg upon admission but has increased back to safe limits. - note done by Lyndsay Abbott, SPT Subjective Subjective Pt states he is well today. He reports that he was living at home alone but did have family that checked on him occasionally but were out of town during this medical event . Pt reports he has a w/c and walker at home but that he didn't use it much because he thoguht the more you use it the more you depend on it . Pt states he was able to take care of himself before this medical event. Pt states before being taken to the ED, he was crawling on the floor to get around due to weakness. Pt reports he did fall about once a month when home alone in the past. Rehab PT IP Eval Objective Appearance Patient Behavior Appropriate,Cooperative, Fatigued,Talkative Patient Orientation Person,Place,Name,Birthday, Situation Difficulty following instructions none Speech Pattern Appropriate,Coherent,Slurred, Aphasic,Mumbled Ambulation Patient Able to Ambulate Yes Ambulation Observation IP General Gait Pattern Observation Narrow Based Gait,Shuffling Step Ambulation Distance (feet) 15 Ambulation Assistive Device Rolling Walker Ambulation Ability Contact Guard/Hand Hold Balance Ability to Arise Able, uses arms to help Sitting Balance Steady, safe Standing Balance
--- NOTE | 2020-12-29 13:12 | HMH.PULMCON ---
*Admission Date: 12/27/20 *Reason for consult:: Emphysema *History of present illness: Mr. Tidwell a 78-year-old male significant smoking history, used to smoke 2 packs a day, currently down to half to 1 pack a day, prior history of multiple strokes with residual left-sided weakness was presented to the ER complaining of extremely weak, decreased p.o. intake abdominal pain, bleeding and diarrhea. During his work-up patient has a CT abdomen performed that showed significant emphysematous changes followed by CT chest without on that showed bilateral diffuse lower lobe predominant bullous emphysematous changes and pulmonary was called for further management. [facility] History Medical History: Reports:: Cerebrovascular Accident, Hyperlipidemia, Hypertension Denies:: Cancer, Diabetes Mellitus Type 1, Diabetes Mellitus Type 2, MRSA *Have you ever received a pneumonia vaccine?: No *Have you received a flu vaccine this season?: No Anesthesia experience/problems:: no issues Other Surgeries: Yes: Hernia Repair Amputation: No Fractures: No - *Social History Smoking Status: Current every day smoker Tobacco Type: pipe # Packs/Day (cigarettes): 0 Alcohol Intake: never Substance Use Type: denies use *Occupational Status:: retired *Travel in the last 8 weeks: None Family Hx:: Heart Attack, Hypertension ROS - Cons Reports anorexia, Reports fatigue, Reports weakness - ENT Reports nasal congestion, Denies bleeding gums - Card Reports shortness of breath with activity - Resp Respiratory: Reports shortness of breath, Reports dyspnea, Reports dyspnea on exertion, Reports cough with sputum production, Denies snoring, Denies wheezing - GI Gastrointestingal: Reports: diarrhea, dyspepsia - [place] Musculoskeletal: Reports abnormal gait, Reports muscle weakness Meds Home Medications Medication Instructions Recorded Confirmed Type aspirin 81 mg tablet,delayed 81 mg PO DAILY 90 Days #90 tab 01/30/18 12/27/20 History release Clopidogrel Bisulfate [Plavix] 75 mg PO DAILY 12/27/20 12/27/20 History Metoprolol Tartrate [Lopressor 25 mg PO BID 12/27/20 12/27/20 History 25mg tablet] Pravastatin Sodium [Pravachol 40mg 40 mg PO HS 12/27/20 12/27/20 History Tablet] lisinopriL [Lisinopril] 10 mg PO HS 12/27/20 12/27/20 History lisinopriL [Lisinopril] 20 mg PO DAILY 12/27/20 12/27/20 History Allergies Allergy/AdvReac Type Severity Reaction Status Date / Time No Known Allergies Allergy Verified 02/13/19 15:31 Exam - Constitutional Constitutional:: Present: no acute distress, comfortable - HENMT Exam HENMT: Present: normocephalic - Eye Exam Eyes:: Present: normal appearance both eyes and related structures - Neck Exam Neck:: Present: normal visual inspection - Respiratory Exam Respiratory:: Present: able to speak in complete sentences, no respiratory distress, decreased breath sounds. Absent: crackles, wheezing - Cardiovascular Exam Cardiac:: Present: S1, S2 - GI Exam GI:: Present: soft - Skin Exam Skin: Present: warm, no rash - Neurological Exam Neurological: Present: alert, awake, normal cognition, motor sensory deficit - Extremities Exam Extremities: Present: no cyanosis, no clubbing, no edema Internal Medicine - CN: Reslt - Labs CBC & Chem 7: 12/29/20 06:17 12/29/20 06:17 Labs: Short CBC 12/29/20 12/29/20 Range/Units 00:35 06:17 WBC 12.8 H D (4.8-10.8) K/mm3 Hgb 11.5 L D 11.6 L (14.1-18.0) g/dL Hct 34.2 L 37.0 L (42.0-52.0) % Plt Count 206 (142-424) K/mm3 BMP 12/29/20 06:17 Sodium 144 Potassium 3.7 Chloride 117 H Carbon Dioxide 23 BUN 27 H D Creatinine 0.90 Glucose 95 Calcium 7.9 L Assessment and Plan (1) Low body mass index (BMI) Status: Acute Category: Medical (2) DIXIE (acute kidney injury) Status: Acute Category: Medical Code(s): N17.9 - Acute kidney failure, unspecified (3) Anemia Status: Acute Qualifiers:
--- NOTE | 2020-12-29 13:42 | HMH.OTEV ---
OT Inpatient Evaluation Rehab OT IP Evaluation Start: 12/29/20 09:59 Freq: ONCE Status: Complete Protocol: Document 12/29/20 13:[address] [facility] (Rec: 12/29/20 13:[address] [facility] [id number]) Rehab OT IP Assessment Subjective History Pt oriented x 3 on arrival. Pt agreeable to engage in therapy evaluation. Pt was admitted via ED on 12/27/20 due to continued weakness, diarrhea, UGIB, and DIXIE. Pt has past medical history of Cerebrovascular Accident, Hyperlipidemia, Hypertension. Pt reports prior to coming to the hospital he lived at home alone. Pt claims he was independen with all ADLs and IADLs. He also still drove. Subjective I have been asked this same question 6 times. Pt completed sit to stand from chair with cga. Pt engaged in functional mobility task of ~30 feet with cga and rolling walker. Pt returned to chair and sat down with cga. Objective Patient Orientation Person,Place,Birthday Upper Extremity Gross ROM WFL Transfer Training Sit/Stand Transfer Assist Level Contact Guard/Hand Hold Chair Transfer Ability Contact Guard/Hand Hold Chair Transfer Technique Sit to/from Ambulatory Chair Transfer Assistive Devices Rolling Walker Rehab OT IP prob,goals,plan Problems Date of Evaluation: 12/29/20 OT IP Problems Bed Mobility,Transfers,Gait, Balance,Self care,Safety Rehab Potential Rehab Potential Good Equipment Needs Assistive Devices Rolling / Wheeled Walker Plan OT intervention Plan Bed Mobility,Transfers,Gait, Balance,Self care,Safety, Therapeutic Exercise OT Plan Frequency BID Duration LOS Discharge Goals Bed Mobility Ability Standby Assistance Sit to Stand Chair Transfer Ability Supervision/Stand by Chair Transfer Ability Supervision/Stand by Chair Transfer Technique Sit to/from Ambulatory Chair Transfer Assistive Devices Rolling Walker Feeding Ability Independent Lower Body Dressing Ability Assistance X1 Upper Body Dressing Ability Standby Assistance Bathing Ability
[2020-12-29 13:53] LABS: Basophils % 0.1 % (0.1-2.0); Eosinophils # 0.1 K/mm3 (0.0-0.4); Eosinophils % 0.7 % (0.1-12.0); Hematocrit 39.4 % (42.0-52.0); Hemoglobin 12.3 g/dL (14.1-18.0); Lymphocytes # 1.3 K/mm3 (0.7-4.5); Lymphocytes % 11.2 % (10-50); Mean Corpuscular HGB Conc 31.3 g/dL (31.8-35.4); Mean Corpuscular Hemoglobin 30.1 pg (27.0-31.2); Mean Corpuscular Volume 96.2 fl (80-94); Monocytes # 0.5 K/mm3 (0.1-1.0); Monocytes % 4.3 % (1.7-9.3); Neutrophils % 83.6 % (37.0-80.0); Platelet Count 209 K/mm3 (142-424); Red Cell Distribution Width 15.6 % (11.5-17.5); White Blood Count 11.9 K/mm3 (4.8-10.8)
--- NOTE | 2020-12-29 16:13 | PC.NURSE ---
Patient is on tele and on room air. Patient went for bronchoscopy this am. Patient is up with assist times one. Patient up to chair, assisted back to bed with aid of walker. Bed in lowest position and phone and call light in reach.
[2020-12-30] VITALS (11 sets, daily range): BP systolic 129–162; BP diastolic 66–88; PULSE 70–93; RESP 14–18; TEMP 36.6–37.2; O2SAT 92–96; BMI 15.2
--- NOTE | 2020-12-30 06:43 | HMH.GSPN ---
Subjective Narrative: Patient sleeping. Progress Note: A&P (1) Low body mass index (BMI) Status: Acute (2) DIXIE (acute kidney injury) Status: Acute (3) Anemia Status: Acute (4) COPD (chronic obstructive pulmonary disease) Status: Acute (5) CVA, old, aphasia Status: Acute (6) Cholelithiasis Status: Acute (7) HTN (hypertension) Status: Acute (8) Hyperlipemia Status: Acute (9) UGIB (upper gastrointestinal bleed) Status: Acute (10) Acute blood loss anemia Status: Acute Assessment and Plan for All Diagnoses:: Hemoglobin has been stable. Exam Vital signs and Labs for Last 24 Hours: Temp Pulse Resp BP Pulse Ox 98 F 82 14 129/66 94 L 12/30/20 04:00 12/30/20 04:00 12/30/20 04:00 12/30/20 04:00 12/30/20 04:00 Laboratory Results - last 24 hr 12/29/20 06:17: WBC 12.8 H D, RBC 3.93 L D, Hgb 11.6 L, Hct 37.0 L, MCV 94.3 H, MCH 29.7, MCHC 31.4 L, RDW 15.5, Plt Count 206, MPV 7.5, Neut % (Auto) 84.1 H, Lymph % (Auto) 10.3, Treasure % (Auto) 4.7, Eos % (Auto) 0.6, Baso % (Auto) 0.2, Neut # (Auto) 10.8 H, Lymph # (Auto) 1.3, Treasure # (Auto) 0.6, Eos # (Auto) 0.1, Baso # (Auto) 0.0 12/29/20 06:17: Sodium 144, Potassium 3.7, Chloride 117 H, Carbon Dioxide 23, Anion Gap 7.7, BUN 27 H D, Creatinine 0.90, Estimated Creat Clear 43, Estimated GFR 83, Est GFR ( Amer) 101 D, Glucose 95, Calcium 7.9 L 12/29/20 13:45: WBC 11.9 H, RBC 4.10 L, Hgb 12.3 L, Hct 39.4 L, MCV 96.2 H, MCH 30.1, MCHC 31.3 L, RDW 15.6, Plt Count 209, MPV 8.0, Neut % (Auto) 83.6 H, Lymph % (Auto) 11.2, Treasure % (Auto) 4.3, Eos % (Auto) 0.7, Baso % (Auto) 0.1, Neut # (Auto) 10.0 H, Lymph # (Auto) 1.3, Treasure # (Auto) 0.5, Eos # (Auto) 0.1, Baso # (Auto) 0.0 I & O for Last 24 hours: Intake & Output 12/27/20 12/28/20 12/29/20 12/30/20 11:59 11:59 11:59 11:59 Intake Total 1000 / 1000 4148 / 4148 2110 / 2110 840 / 840 Output Total 825 / 825 300 / 300 200 / 200 Balance 1000 / 1000 3323 / 3323 1810 / 1810 640 / 640 Weight 96 lb 6 oz 99 lb 7 oz 97 lb 0.054 oz 97 lb 0.054 oz - Constitutional no acute distress
--- NOTE | 2020-12-30 06:50 | SW/DCPLANNER ---
SPOKE WITH THE SISTER OF THIS PATIENT YESTERDAY MORNING REGARDING DISCHARGE PLANNING FOR HER BROTHER.. SISTER STATED PATIENT WILL NEED TO GO SOMEWHERE FOR SKILLED REHAB R/T LIVING ALONE AND NOT BEING ABLE TO MANAGE AT THIS TIME.. SHE STATED HE HAD BEEN AT [facility] IN THE PAST AND STATED THEY TAKE HIS AETNA MCR.. SHE GAVE ME HER PHONE NUMBER LISA STEPHANIE TO CONTACT IF THEY ACCEPT HIM FOR SHORT TERM REHAB PLACEMENT.. REFERRAL WAS SENT TO [facility] AND I HAD A COUPLE CONVERSATIONS WITH [facility] AND SHE SAID THEY HAVE STARTED THE PRECERT AND AWAITING INSURANCE APPROVAL.. IF PATIENT GETS APPROVAL AND IS MEDICALLY STABLE TO DISCHARGE HE COULD POSSIBLY GO TODAY. WAITING TO HEAR BACK FROM [facility]..
--- NOTE | 2020-12-30 09:07 | SW/DCPLANNER ---
Addendum entered by Tricia Watson 12/31/20 11:09: This patient has been approved to discharge to [facility] today. COVID swab has been collected: negative and faxed. I have updated MD and patient will discharge today. Addendum entered by Tricia Watson 12/31/20 09:14: Per Yoselyn with [facility] precert is still pending at this time. Addendum entered by Tricia Watson 12/30/20 14:28: Yoselyn hagen/ Tyler Moore has stated that precert is still pending. Original Note: Yoselyn with [facility] has stated that precert is pending for this patient. Patient is agreeable to discharge to [facility] once medically stable. I will continue to follow up with Yoselyn, patient and patients family. Dr Diez has stated that if [facility] accepts patient can discharge today.
--- NOTE | 2020-12-30 09:14 | HMH.PULMPN ---
Internal Medicine - PN: Subj *Date: 12/30/20 *Time: 11:33 Interval history: No acute respiratory vents overnight. Admits improvement in symptoms after initiating nebulizer therapy. Exam - Constitutional Constitutional:: Present: no acute distress, comfortable - HENMT Exam HENMT: Present: normocephalic, atraumatic - Eye Exam Eyes:: Present: normal appearance both eyes and related structures - Neck Exam Neck:: Present: normal visual inspection - Respiratory Exam Respiratory:: Present: able to speak in complete sentences, no respiratory distress, decreased breath sounds. Absent: crackles, rales, wheezing - Cardiovascular Exam Cardiac:: Present: S1, S2 - GI Exam GI:: Present: soft - Skin Exam Skin: Present: warm, no rash, dry - Neurological Exam Neurological: Present: alert, awake, normal cognition Assessment and Plan (1) Low body mass index (BMI) Status: Acute Category: Medical (2) DIXIE (acute kidney injury) Status: Acute Category: Medical Code(s): N17.9 - Acute kidney failure, unspecified (3) Anemia Status: Acute Qualifiers: Anemia type: unspecified type Qualified Code(s): D64.9 - Anemia, unspecified Category: Medical Code(s): D64.9 - Anemia, unspecified (4) COPD (chronic obstructive pulmonary disease) Status: Acute Qualifiers: COPD type: unspecified COPD Qualified Code(s): J44.9 - Chronic obstructive pulmonary disease, unspecified Category: Medical Code(s): J44.9 - Chronic obstructive pulmonary disease, unspecified (5) CVA, old, aphasia Status: Acute Category: Medical Code(s): I69.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 (6) Cholelithiasis Status: Acute Qualifiers: Cholelithiasis location: gallbladder Cholecystitis presence: without cholecystitis Biliary obstruction: without biliary obstruction Qualified Code(s): K80.20 - Calculus of gallbladder without cholecystitis without obstruction Category: Medical Code(s): K80.20 - Calculus of gallbladder without cholecystitis without obstruction (7) HTN (hypertension) Status: Acute Qualifiers: Hypertension type: primary hypertension Qualified Code(s): I10 - Essential (primary) hypertension Category: Medical Code(s): I10 - Essential (primary) hypertension (8) Hyperlipemia Status: Acute Qualifiers: Hyperlipidemia type: unspecified Qualified Code(s): E78.5 - Hyperlipidemia, unspecified Category: Medical Code(s): E78.5 - Hyperlipidemia, unspecified (9) UGIB (upper gastrointestinal bleed) Status: Acute Category: Medical Code(s): K92.2 - Gastrointestinal hemorrhage, unspecified (10) Acute blood loss anemia Status: Acute Category: Medical Code(s): D62 - Acute posthemorrhagic anemia - Assessment and plan all Dx Assessment and Plan for all problems:: #History of smoking, greater than [id number]-ympr smoking: #Emphysema: #Exertional dyspnea: 70-year-old male presented to the ER complaining of weakness bleeding CT abdomen performed that showed lower lobe emphysematous changes followed by a dedicated CT chest without contrast that showed bilateral lower lobe predominant large bullous emphysematous changes. No evidence of airspace disease noted. No suspicious pulmonary nodules or lymphadenopathy noted. No recent prior PFTs available for review. Patient admits dyspnea with minimal activities of daily living. He is currently not using any inhalers. He has a greater than 71-[id number]-[id number] smoking history, used to smoke 2 packs a day, currently down to half to 1 pack a day. Denies any prior history of blood clots. No significant occupational history. Patient today on room air saturating 97%. Plan: -Initiate patient on Bevespi inhaler with spacer to facilitate compliance given his history of stroke and being weak, will attempt to fill the prescription provide inhaler technique training before discharge. We will also initiate DuoNebs every 6 hours as neede
--- NOTE | 2020-12-30 15:25 | PC.NURSE ---
No acute changes. Remains on room air. No s/s of resp distress. Abdomen soft, non-tender w/ active BS. Pt did have a formed BM this AM. Voiding w/o difficulty. Urine noted to be cinthya in color. He requires assistance x1 when ADL's. Uses rollings walker w/ ambulating in room. He is currently sitting in the recliner watching tv. Call alvarado w/in reach. Clip alarm in place. No complaints voiced.
--- NOTE | 2020-12-30 16:50 | HMH.ACPN2 ---
Internal Medicine - PN: Subj *Date: 12/30/20 *Time: 19:11 Interval history: 70-year-old male patient sitting in bed resting quietly with eyes open. He reports he is feeling better today than yesterday, reports abdomen is cracking still operator. [place] [facility] [place] revealed Mild nonerosive gastritis, Duodenal diverticulum, and Several small punctate duodenal ulcerations without stigmata of recent bleeding General Surgery Recommendations: I will go ahead and start a regular diet. Continue proton pump inhibitors. Once hemoglobin shows stability after transfusion may be able to discharge home. May ultimately need colonoscopy as outpatient for completeness. Exam Vital signs and Labs for Last 24 Hours: Temp Pulse Resp BP Pulse Ox 99.0 F 76 16 156/88 H 96 12/30/20 15:42 12/30/20 15:42 12/30/20 15:42 12/30/20 15:42 12/30/20 15:42 I & O for Last 24 hours: Intake & Output 12/27/20 12/28/20 12/29/20 12/30/20 23:59 23:59 23:59 23:59 Intake Total 4588 / 4588 2190 / 2190 1320 / 1320 1468 / 1468 Output Total 250 / 450 675 / 675 200 / 400 510 / 510 Balance 4338 / 4138 1515 / 1515 1120 / 920 958 / 958 Weight 96 lb 6 oz 99 lb 7 oz 97 lb 0.054 oz 97 lb 0.054 oz - Constitutional no acute distress, thin - *Routine HEENT Exam Head: Present: normocephalic Eye: Present: EOMI ENT: Present: mucous membranes moist - *Routine Neck Exam Present: trachea midline. Absent: tracheal deviation - *Routine Respiratory Exam Present: accessory muscle use, CTA bilaterally - *Routine Cardiovascular Exam Present: RRR - *Routine Abdominal Exam Present: soft, normoactive bowel sounds, tenderness. Absent: firm - *Routine Extremities Exam Present: full ROM, pulses intact. Absent: cyanosis, clubbing, edema - *Routine Skin Exam Present: intact, warm. Absent: cyanosis, erythema - *Routine Neurological Exam Present: alert, oriented X3, motor deficit. Absent: altered mental status - Routine Psychiatric Exam Present: normal affect, normal thought process. Absent: visual hallucinations Assessment and Plan (1) Low body mass index (BMI) Status: Acute Category: Medical (2) DIXIE (acute kidney injury) Status: Acute Category: Medical Code(s): N17.9 - Acute kidney failure, unspecified (3) Anemia Status: Acute Qualifiers: Anemia type: unspecified type Qualified Code(s): D64.9 - Anemia, unspecified Category: Medical Code(s): D64.9 - Anemia, unspecified (4) COPD (chronic obstructive pulmonary disease) Status: Acute Qualifiers: COPD type: unspecified COPD Qualified Code(s): J44.9 - Chronic obstructive pulmonary disease, unspecified Category: Medical Code(s): J44.9 - Chronic obstructive pulmonary disease, unspecified (5) CVA, old, aphasia Status: Acute Category: Medical Code(s): I69.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 (6) Cholelithiasis Status: Acute Qualifiers: Cholelithiasis location: gallbladder Cholecystitis presence: without cholecystitis Biliary obstruction: without biliary obstruction Qualified Code(s): K80.20 - Calculus of gallbladder without cholecystitis without obstruction Category: Medical Code(s): K80.20 - Calculus of gallbladder without cholecystitis without obstruction (7) HTN (hypertension) Status: Acute Qualifiers: Hypertension type: primary hypertension Qualified Code(s): I10 - Essential (primary) hypertension Category: Medical Code(s): I10 - Essential (primary) hypertension (8) Hyperlipemia Status: Acute Qualifiers: Hyperlipidemia type: unspecified Qualified Code(s): E78.5 - Hyperlipidemia, unspecified Category: Medical Code(s): E78.5 - Hyperlipidemia, unspecified (9) UGIB (upper gastrointestinal bleed) Status: Acute Category: Medical Code(s): K92.2 - Gastrointestinal hemorrhage, unspecified (10) Acute blood loss anemia Statu
[2020-12-31] VITALS (8 sets, daily range): BP systolic 118–160; BP diastolic 66–93; PULSE 68–80; RESP 16–17; TEMP 36.5–37.1; O2SAT 90–95; BMI 18.0
[2020-12-31 07:07] LABS: Chloride 115 mmol/L (98-107); Sodium 143 mmol/L (136-145)
[2020-12-31 07:08] LABS: Potassium 3.9 mmoL/L (3.5-5.1)
[2020-12-31 07:09] LABS: Basophils % 0.2 % (0.1-2.0); Eosinophils # 0.4 K/mm3 (0.0-0.4); Hematocrit 36.2 % (42.0-52.0); Hemoglobin 11.4 g/dL (14.1-18.0); Lymphocytes # 1.8 K/mm3 (0.7-4.5); Lymphocytes % 14.9 % (10-50); Mean Corpuscular HGB Conc 31.5 g/dL (31.8-35.4); Mean Corpuscular Hemoglobin 30.2 pg (27.0-31.2); Mean Corpuscular Volume 95.9 fl (80-94); Mean Platelet Volume 8.3 fl (7.4-10.4); Monocytes # 0.5 K/mm3 (0.1-1.0); Monocytes % 4.5 % (1.7-9.3); Neutrophils # 9.1 K/mm3 (1.8-7.8); Neutrophils % 77.4 % (37.0-80.0); Platelet Count 223 K/mm3 (142-424); Red Blood Count 3.78 M/mm3 (4.60-6.20); Red Cell Distribution Width 16.3 % (11.5-17.5); White Blood Count 11.8 K/mm3 (4.8-10.8)
[2020-12-31 07:10] LABS: Blood Urea Nitrogen 18 mg/dl (9-20); Creatinine Clearance Estimated 51 mL/min (50-200); Estimated Glomerular Filt Rate 83 ml/min (>60); GFR (African American) 101 ML/MIN (>60)
[2020-12-31 07:11] LABS: Anion Gap 7.9 mEq/L (5-15); Calcium 7.5 mg/dl (8.4-10.2); Carbon Dioxide 24 mmol/L (22.0-30.0); Glucose 109 mg/dl (74-100)
[2020-12-31 10:26] LABS: Coronavirus 19, PCR Not Detected (NotDetected); Influenza A, PCR Not Detected (NotDetected); Influenza B, PCR Not Detected (NotDetected)
--- NOTE | 2020-12-31 11:59 | HMH.PULMPN ---
Internal Medicine - PN: Subj *Date: 12/31/20 *Time: 11:59 Interval history: Patient admits continued improvement in his symptoms. No new respiratory symptoms. Exam - Constitutional Constitutional:: Present: no acute distress, comfortable - HENMT Exam HENMT: Present: normocephalic, atraumatic - Eye Exam Eyes:: Present: normal appearance both eyes and related structures - Neck Exam Neck:: Present: normal visual inspection - Respiratory Exam Respiratory:: Present: able to speak in complete sentences, no respiratory distress, decreased breath sounds. Absent: crackles, wheezing - Cardiovascular Exam Cardiac:: Present: S1, S2 - GI Exam GI:: Present: soft - Skin Exam Skin: Present: warm, no rash - Neurological Exam Neurological: Present: alert, awake, normal cognition, motor sensory deficit - Extremities Exam Extremities: Present: no cyanosis, no clubbing, no edema - Psychiatric Exam Psychiatric: Present: normal affect Assessment and Plan (1) Low body mass index (BMI) Status: Acute Category: Medical (2) DIXIE (acute kidney injury) Status: Acute Category: Medical Code(s): N17.9 - Acute kidney failure, unspecified (3) Anemia Status: Acute Qualifiers: Anemia type: unspecified type Qualified Code(s): D64.9 - Anemia, unspecified Category: Medical Code(s): D64.9 - Anemia, unspecified (4) COPD (chronic obstructive pulmonary disease) Status: Acute Qualifiers: COPD type: unspecified COPD Qualified Code(s): J44.9 - Chronic obstructive pulmonary disease, unspecified Category: Medical Code(s): J44.9 - Chronic obstructive pulmonary disease, unspecified (5) CVA, old, aphasia Status: Acute Category: Medical Code(s): I69.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 (6) Cholelithiasis Status: Acute Qualifiers: Cholelithiasis location: gallbladder Cholecystitis presence: without cholecystitis Biliary obstruction: without biliary obstruction Qualified Code(s): K80.20 - Calculus of gallbladder without cholecystitis without obstruction Category: Medical Code(s): K80.20 - Calculus of gallbladder without cholecystitis without obstruction (7) HTN (hypertension) Status: Acute Qualifiers: Hypertension type: primary hypertension Qualified Code(s): I10 - Essential (primary) hypertension Category: Medical Code(s): I10 - Essential (primary) hypertension (8) Hyperlipemia Status: Acute Qualifiers: Hyperlipidemia type: unspecified Qualified Code(s): E78.5 - Hyperlipidemia, unspecified Category: Medical Code(s): E78.5 - Hyperlipidemia, unspecified (9) UGIB (upper gastrointestinal bleed) Status: Acute Category: Medical Code(s): K92.2 - Gastrointestinal hemorrhage, unspecified (10) Acute blood loss anemia Status: Acute Category: Medical Code(s): D62 - Acute posthemorrhagic anemia - Assessment and plan all Dx Assessment and Plan for all problems:: #History of smoking, greater than 91-ymhu-srdc smoking: #Emphysema: #Exertional dyspnea: 70-year-old male presented to the ER complaining of weakness bleeding CT abdomen performed that showed lower lobe emphysematous changes followed by a dedicated CT chest without contrast that showed bilateral lower lobe predominant large bullous emphysematous changes. No evidence of airspace disease noted. No suspicious pulmonary nodules or lymphadenopathy noted. No recent prior PFTs available for review. Patient admits dyspnea with minimal activities of daily living. He is currently not using any inhalers. He has a greater than 99-aucs-wulv smoking history, used to smoke 2 packs a day, currently down to half to 1 pack a day. Denies any prior history of blood clots. No significant occupational history. Patient admits continued improvement in symptoms after nebulization therapy.. Plan: -Bevespi inhaler with spacer to facilitate compliance given his history of stroke and being weak, w
--- NOTE | 2020-12-31 12:18 | HMH.DCSUM ---
General - General Admission date:: 12/28/20 Discharge date: 12/31/20 HPI HPI: pt with progressive weakness and noted dark stool and presented to ed for eval - EMS they were called out for a welfare check to the pt's adress. Pt reports to feeling so weak he has been unable to ambulate for 2 days and has not been able to eat or drink anything since yesterday (12/25). Pt also reports to be having black stool and diarrhea for several days. He lives at home, his family usually helps him out but they are out of town. Pt is A&Ox3. He denies any cough, sob, or n/v. He reports sometimes I feel like I have a fever but I haven't checked it . He also states he has lost maybe 20lbs recently. pt was admitted for eval and treatment Hospital Course Hospital Course: 70-year-old male patient presented to [facility] emergency department for complaints of progressive weakness and dark stool. EMS reported they were called for a welfare check to the patient's address and patient reported being weak for several days and unable to walk, unable to eat or drink anything for 1 day, and having black stools and diarrhea for several days. He lives at home and his family usually checks on him but they are out of town at the moment. He is at the moment alert and oriented x3 denies any cough, shortness of breath, nausea or vomiting. He was admitted for further evaluation and treatment. Hemoglobin stable at 10.3 12/27/20 Abd/Pelvis CT: FINDINGS: Lungs: Severe bullous emphysema at the lung bases. Liver: Subcentimeter low-attenuation lesion in the liver, too small for definitive evaluation, but statistically most likely benign. Gallbladder and bile ducts: Cholelithiasis. No gallbladder wall thickening. No biliary dilation. Pancreas: Pancreatic atrophy with numerous parenchymal calcifications, compatible with chronic pancreatitis. No peripancreatic stranding, fluid collection, or evidence of acute pancreatitis. Spleen: Mildly heterogeneous appearance of the spleen, likely perfusional due to contrast phase/timing. Adrenal glands: Unremarkable. Kidneys and ureters: Bilateral renal cortical thinning/scarring. No hydronephrosis. Renal vascular calcifications, without definite caliceal calculi. Stomach and bowel: Enteric contrast is present within the stomach and most of the small bowel. The stomach and proximal small bowel are not significantly distended. There are several borderline dilated loops of small bowel in the lower abdomen and pelvis measuring up to 2.9 cm in caliber, nonspecific and possibly related to peristalsis, enteritis, or low-grade obstruction without abrupt transition point. The terminal ileum is noted to be decompressed. Enteric contrast has not yet reached the colon. The colon contains a moderate amount of solid stool, and is nondilated. A short segment/knuckle of the sigmoid colon partially enters the left inguinal hernia sac, without obstruction. Scattered colonic diverticula without evidence of acute diverticulitis. Appendix: Not visualized. Intraperitoneal space: Small volume ascites. No pneumoperitoneum. 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 No abdominal aortic aneurysm. Lymph nodes: No enlarged lymph nodes. Urinary bladder: Unremarkable as visualized. No wall thickening. Reproductive: Trace nonspecific scrotal hydroceles. Enlarged prostate gland with coarse central calcifications. Bones/joints: Osteopenia. No acute fracture. Kbwz-wa-nfcxlerl bilateral hip osteoarthrosis. Lumbar degenerative changes, with distal neural foraminal narrowing. Soft tissues: Marked thinning of the subcutaneous adipose tissue. Mild generalized muscle volume loss. Small left inguinal hernia containing a knuckle of the sigmoid colon, without evidence of dilation/obstruction. IMPRESSION: 1. No specific etiology for GI bleeding identified. 2. Severa
--- NOTE | 2020-12-31 14:17 | PC.NURSE ---
discharged via w/c and family x2 per private vehicle. Accompanied by SRNA
== END 2020-12-31 14:25 | DRG 377 ==
LOC: ER 12-27 00:10 → 2ND 12-27 05:01
PROVIDERS: Nurse Practitioner Family; Surgery; Admitting Provider Emergency Medicine; Emergency Provider Emergency Medicine; PCP Emergency Medicine; Visit Provider Emergency Medicine
PROC: 0DJ08ZZ Inspection of Upper Intestinal Tract, Via Natural or Artificial Opening Endoscopic (ICD-10-PCS; CPT 43235; principal; 2020-12-29 07:30)
DX: K29.71 Gastritis, unspecified, with bleeding (principal); E43 Unspecified severe protein-calorie malnutrition; N17.9 Acute kidney failure, unspecified; D62 Acute posthemorrhagic anemia; Z68.1 Body mass index [BMI] 19.9 or less, adult; K57.11 Diverticulosis of small intestine without perforation or abscess with bleeding; K26.4 Chronic or unspecified duodenal ulcer with hemorrhage; I69.320 Aphasia following cerebral infarction; E78.5 Hyperlipidemia, unspecified; I10 Essential (primary) hypertension; J43.9 Emphysema, unspecified; Z87.891 Personal history of nicotine dependence; F17.290 Nicotine dependence, other tobacco product, uncomplicated
CPT/HCPCS: 43239; 36415; 71045; 71250; 74177; 80048; 80053; 81001; 82150; 82272; 83540; 83550; 83605; 83690; 83735; 84145; 84436; 84443; 84484; 85007; 85014; 85018; 85025; 85651; 86140; 86850; 87040; 88305; 93005; 93306; 94640; 96365; 97110; 97116; 97162; 97166; 97530; 97535; 99284; C9803; G0328; G0378; P9016; Q9967; U0003; U0005

== ENCOUNTER → 2021-06-11 12:26 | Outpatient (CLI) | payer MEDICARE, SELFPAY ==
--- NOTE | 2021-06-11 13:10 | PC.NURSE ---
B/P TAKEN BEFORE 6 MINUTE WALK TEST AND IT WAS 220/110, TOOK MULTIPLE TIMES MANUALLY AND IT WAS ALL THE SAME. CALLED AND WAS TOLD TO TAKE HIM TO ER.
[2021-06-11 13:40] VITALS: PULSE 44; PULSE 46
== END ==
PROVIDERS: PCP Emergency Medicine; Visit Provider Internal Medicine Pulmonary Disease
DX: R06.02 Shortness of breath (principal)
CPT/HCPCS: 94060; 94618; 94640; 94727; 94729

== ENCOUNTER 2021-06-11 14:18 | Emergency (ER) | payer MEDICARE, SELFPAY ==
[2021-06-11 14:19] VITALS: BP 208/110; BP 236/105; PULSE 61; RESP 18; TEMP 37.1; O2SAT 98; BMI 17.7
--- NOTE | 2021-06-11 14:47 | HMH.EDGENADL ---
ED Disposition Clinical Impression: Uncontrolled hypertension Disposition: Home, Self-Care Condition on Discharge: Good Instructions: Essential Hypertension Additional Instructions: follow up PCP 3-5 days, return for worse Referrals: Vargas Diez MD [Primary Care Provider] - - Critical Care Critical Care Time: No Attestation: On 06/11/21, the high probability of a clinically significant, sudden or life threatening deterioration of the following system(s) required my full and direct attention, intervention and personal management. The time I documented below is in addition to time spent performing reported procedures but includes the following listed in this critical care notation. Medical Decision Making - Medical Records Medical records reviewed: Yes: I reviewed the patient's medical records. - [place] Inquiry Pt receiving controlled substance: No Vital Signs: 06/11/21 14:19 06/11/21 15:42 Temperature 98.7 F Temperature Source Oral Pulse Rate [Radial] 61 Respiratory Rate 18 Blood Pressure 184/91 H Blood Pressure [Left Arm] 208/110 H Blood Pressure [Right Arm] 236/105 H Blood Pressure Mean 163 Blood Pressure Mean [Left Arm] 142 Blood Pressure Mean [Right Arm] 148 Blood Pressure Position [Left Arm] Sitting Blood Pressure Position [Right Arm] Sitting 02 Sat by Pulse Oximetry 98 93 L Oxygen Delivery Method Room Air Orders (Tests/Meds): ED MEDICATIONS Discontinued Medications Generic Name Dose Route Start Last Admin Trade Name Johnq PRN Reason Stop Dose Admin Clonidine HCl 0.1 mg 06/11/21 14:39 06/11/21 15:01 Clonidine 0.1mg Tablet PO 06/11/21 14:40 0.1 mg ONCE ONE Administration - Reevaluation(s) Time: 15:58 (reeval, BP improved, appears well w/o complaint, ok with plan to f/u PCP and return for worse) General Adult HPI - General Chief complaint: Recheck/Abnormal Lab/Rx Stated complaint: high blood pressure Time Seen by Provider: 06/11/21 14:50 Mode of Arrival: Ambulatory Source of Information: Patient Limitations: No Limitations Description of Symptoms (Recalled from ER Triage Doc. by RN): to ed pt sent from pulmonary office for eval due to elevated blood pressure readings at office. pt denies any c/o at present. states he did take his b/p meds today. - History of Present Illness HPI narrative: sent by outpt pulmonary lab for elev bp, asymptomatic says he has 2x bp meds and has pcp Consistency: constant Relieving factors: none Exacerbating factors: none Associated symptoms: denies other symptoms - Related Data Previous Rx's Medication Instructions Recorded albuterol sulfate 90 mcg/actuation 1 inh INHALATION Q6H PRN 90 Days 01/30/21 aerosol inhaler #8.5 g clopidogrel 75 mg tablet 75 mg PO DAILY #30 tab 01/30/21 glycopyrrolate 9 mcg-formoterol 2 puff INHALATION BID 90 Days 01/30/21 4.8 mcg HFA aerosol inhaler #10.7 g ipratropium 0.5 mg-albuterol 3 mg 3 ml INHALATION QID PRN 90 Days 01/30/21 (2.5 mg base)/3 mL nebulization #360 ml soln lisinopril 10 mg tablet 10 mg PO HS #30 tab 01/30/21 lisinopril 20 mg tablet 20 mg PO DAILY #30 tab 01/30/21 metoprolol tartrate 25 mg tablet 25 mg PO BID #30 tab 01/30/21 pravastatin 40 mg tablet 40 mg PO HS #30 tab 01/30/21 aspirin 81 mg tablet,delayed 81 mg PO DAILY 90 Days #90 tab 06/10/21 release pantoprazole 40 mg tablet,delayed 40 mg PO HS #30 tab 06/10/21 release Allergies Allergy/AdvReac Type Severity Reaction Status Date / Time No Known Allergies Allergy Verified 02/13/19 15:31 [facility] History - Hepatitis A Screen Drug use history?: No High risk sexual behaviors?: No History of sexually transmitted infection?: No Currently employed?: No Childcare worker?: No Do you have indoor plumbing?: Yes Do you have electricity?: Yes Attestation statement:: This patient has been screened for Hepatitis A risk factors. Medical History: Reports:: Cerebrovascular Accident, Hyperlipidemia,
[2021-06-11 15:42] VITALS: BP 184/91; O2SAT 93
[2021-06-11 16:05] VITALS: BP 161/80; PULSE 51; RESP 18; TEMP 37.1; O2SAT 93
== END 2021-06-11 16:05 | disposition home or self-care (01) ==
PROVIDERS: Emergency Provider Emergency Medicine; PCP Emergency Medicine
DX: I16.0 Hypertensive urgency (principal); J43.9 Emphysema, unspecified; E78.5 Hyperlipidemia, unspecified; F17.210 Nicotine dependence, cigarettes, uncomplicated; Z79.899 Other long term (current) drug therapy; Z86.73 Personal history of transient ischemic attack (TIA), and cerebral infarction without residual deficits
CPT/HCPCS: 94060; 94640; 94727; 94729; 94762; 99283

== ENCOUNTER → 2021-06-16 14:43 | Outpatient (CLI) | payer MEDICARE, SELFPAY ==
[2021-06-16 19:15] LABS: Basophils # 0.1 K/mm3 (0-0.2); Basophils % 0.8 % (0.1-2.0); Eosinophils # 0.2 K/mm3 (0.0-0.4); Eosinophils % 1.9 % (0.1-12.0); Hematocrit 47.1 % (42.0-52.0); Hemoglobin 15.1 g/dL (14.1-18.0); Lymphocytes # 2.2 K/mm3 (0.7-4.5); Lymphocytes % 26.5 % (10-50); Mean Corpuscular Volume 90.7 fl (80-94); Mean Platelet Volume 8.5 fl (7.4-10.4); Monocytes # 0.6 K/mm3 (0.1-1.0); Monocytes % 6.7 % (1.7-9.3); Neutrophils # 5.3 K/mm3 (1.8-7.8); Neutrophils % 64.1 % (37.0-80.0); Platelet Count 291 K/mm3 (142-424); Red Cell Distribution Width 14.9 % (11.5-17.5); White Blood Count 8.3 K/mm3 (4.8-10.8)
[2021-06-16 19:18] LABS: Chloride 108 mmol/L (98-107); Sodium 142 mmol/L (136-145)
[2021-06-16 19:20] LABS: Alanine Aminotransferase 17 U/L (12-78); Albumin Level 4.1 g/dl (3.5-5.0); Albumin/Globulin Ratio 1.6 (1.1-1.8); Alkaline Phosphatase 62 U/L (38-126); Aspartate Amino Transferase 29 U/L (17-59); Bilirubin,Total 0.8 mg/dl (0.2-1.3); Blood Urea Nitrogen 30 mg/dl (9-20); Carbon Dioxide 26 mmol/L (22.0-30.0); Estimated Glomerular Filt Rate 54 ml/min (>60); GFR (African American) 66 ML/MIN (>60); Globulin 2.6 g/dL (1.3-3.2); Total Protein,Serum 6.7 g/dl (6.3-8.2)
[2021-06-16 19:21] LABS: Calcium 8.9 mg/dl (8.4-10.2); Chol/HDL Ratio 2.3 (1-3.5); Cholesterol 119 mg/dl (140-200); Glucose 100 mg/dl (74-100); HDL Cholesterol 52 mg/dl (40-60); Triglycerides 81 mg/dl (30-150); VLDL Cholesterol 16 mg/dL (0-40)
[2021-06-16 19:38] LABS: Free T4 (Free Thyroxine) 1.37 ng/dl (0.78-2.19)
[2021-06-16 19:51] LABS: Thyroid Stimulating Hormone 1.14 uIU/mL (0.465-4.68)
== END ==
PROVIDERS: Visit Provider Emergency Medicine
DX: I10 Essential (primary) hypertension (principal); K80.20 Calculus of gallbladder without cholecystitis without obstruction; K59.00 Constipation, unspecified; E03.9 Hypothyroidism, unspecified
CPT/HCPCS: 80053; 80061; 84439; 84443; 85025

== ENCOUNTER → 2022-03-11 14:34 | Outpatient (CLI) | payer MEDICARE, SELFPAY ==
--- NOTE | 2022-03-11 14:38 | CT_ITS ---
FINAL REPORT CLINICAL HISTORY: lung cancer screening former smoker quit 7 years ago smoked for 40 years 1.5 packs per day hx of lung cancer COMPARISON: December 28, 2020 FINDINGS: Low-Dose Chest CT Axial images were obtained from the lung apex to the mid abdomen by computed tomography. Low-dose protocol was utilized. CTDI vol (mGy): 2.90 DLP (mGy-cm): 113.5 There is no axillary adenopathy. There is no hilar adenopathy. There are borderline size mediastinal lymph nodes which are stable. The heart is proper size. There is no pericardial effusion. There is a small right pleural effusion. Lung window images demonstrate no new mass or nodule. There are severe changes of emphysema, worse in the lung bases. There is mild pulmonary scarring. Limited images of the upper abdomen demonstrate numerous calcifications in the tail of the pancreas consistent with pancreatitis. There is diffuse ankylosis of the thoracic spine which may represent ankylosing spondylitis. IMPRESSION: No new mass or nodule identified. Modifier S: Severe emphysema. Chronic pancreatitis. Ankylosing spondylosis Lung RADS category 1S. Recommend 12 month follow-up low-dose chest CT. Reviewed, Interpreted and Dictated by Osman Loomis III, MD Transcribed by Jaylin Reed Authenticated and [facility]
== END ==
PROVIDERS: PCP Emergency Medicine; Visit Provider Internal Medicine Pulmonary Disease
DX: Z87.891 Personal history of nicotine dependence (principal); Z12.2 Encounter for screening for malignant neoplasm of respiratory organs
CPT/HCPCS: 71271

== ENCOUNTER → 2022-12-03 12:59 | Outpatient (CLI) | payer MEDICARE, SELFPAY | PROVIDERS: PCP Emergency Medicine; Visit Provider Internal Medicine Pulmonary Disease | DX: J44.9 Chronic obstructive pulmonary disease, unspecified (principal); Z87.891 Personal history of nicotine dependence | CPT/HCPCS: 94060 ==